=== PATIENT | female | born 2000 | race African-American/Black ===

== ENCOUNTER 2020-07-29 13:54 | Outpatient (CLI) | payer OTHER, SELFPAY ==
--- NOTE | ~2020-07-29 | US_ITS ---
EXAMINATION: US OB follow up DATE: 07/29/2020 14:37 INDICATION: Uncertain dates. TECHNIQUE: Real-time ultrasound of the pelvis was performed. COMPARISON: None. FINDINGS: There is a single living fetus in vertex presentation. The placenta is posterior. heart rate i s 144 beats per minute (bpm). The amniotic fluid volume is subjectively normal. The following biometric data were obtained: Biparietal diameter (BPD): 4.9 cm; head circumference (HC): 18.0 cm; abdominal circumference (AC): 14 .8 cm; femur length (FL): 3.6 cm. These measurements are concordant. Estimated weight is 366 g +/- 55 g, which correlates with >97th percentile when 12/21/20 is used as estimated date of delivery. As single measurements, these parameters are each equal to the following estimated gestational ages: BPD: 20 weeks 5 days. HC: 20 weeks 3 days. AC: 20 weeks 1 days. FL: 21 weeks 2 days. estimated gestational age based solely on measurements from this exam is 20 weeks 5 days +/- 1 weeks 3 days. IMPRESSION: 1. Single living fetus in vertex presentation. 2. Large for gestational age. Estimated weight is 366 g +/- 55 g, which correlates with >97th percentile when 12/21/20 is used as estimated date of delivery. Reviewed, dictated and finalized at location A. ING INTERN IMPRESSION: 1. Single living fetus in vertex presentation. 2. Large for gestational age. Estimated weight is 366 g +/- 55 g, which correlates with >97th percentile when 12/21/20 is used as estimated date of deli veryJuanita
== END 2020-07-29 13:55 | disposition home or self-care (01) ==
LOC: ANHIMG 14:02
PROVIDERS: PCP Internal Medicine; Visit Provider Obstetrics & Gynecology
DX: Z36.89 Encounter for other specified antenatal screening (principal)
CPT/HCPCS: 76816

== ENCOUNTER 2020-11-11 16:10 | Outpatient (CLI) | payer OTHER, SELFPAY ==
[2020-11-11 16:36] VITALS: BP 144/86; PULSE 91
[2020-11-11 16:44] VITALS: BP 144/86; PULSE 90
[2020-11-11 16:45] LABS: Basophils Percent Auto 0.5 % (0.2-1.2); Eosinophils Percent Auto 0.1 % (0-4.4); Hematocrit 31.1 % (37.0-47.0); Hemoglobin 10.7 g/dL (12.0-15.0); Immature Granulocyte Absolute 0.09 K/mm3 (0.00-0.031); Immature Granulocyte Percent A 1.1 % (0-0.5); Lymphocytes Absolute Auto 1.56 K/mm3 (0.9-3.2); Lymphocytes Percent Auto 18.2 % (18.3-44.2); Mean Corpuscular HGB Conc 34.4 g/dl (32-36); Mean Corpuscular Hemoglobin 31.1 pg (26-34); Mean Corpuscular Volume 90.4 fl (80-100); Mean Platelet Volume 10.7 fl (7.4-10.4); Monocytes Absolute Auto 0.6 K/mm3 (0.1-0.6); Monocytes Percent Auto 6.4 % (2.6-8.5); Neutrophils Absolute Auto 6.3 K/mm3 (1.3-6.7); Neutrophils Percent Auto 73.7 % (45.5-73.1); Nucleated Red Blood Cells Perc 0.2 % (0.0-0.2); Platelet Count Result 294 k/mm3 (150-375); Red Blood Count 3.44 M/mm3 (4.2-5.4); Red Cell Distribution Width 13.2 % (11.5-14.5); White Blood Count 8.6 K/mm3 (4.5-10.0)
[2020-11-11 16:46] VITALS: BP 143/91; PULSE 118
[2020-11-11 16:51] LABS: Add Urine Microscopic? YES; Appearance Urine Cloudy (Clear); Bacteria Urine Trace /hpf; Bilirubin Urine 2+ (Negative); Blood Urine Negative (Negative); Color Urine Amber (Yellow); Glucose Urine UA Negative (Negative); Ketones Urine Trace mg/dL (Negative); Leukocyte Esterase Ur 1+ LEU/UL (NEGATIVE); Mucus Urine Heavy /lpf; Nitrate Urine Negative (Negative); Protein Urine 2+ mg/dL (Negative); Squamous Epithelial Cell Urine Many /hpf (Few); WBC Urine 31-50 /hpf (0-3)
[2020-11-11 16:53] LABS: Anion Gap 4 mmol/L (8-16); Blood Urea Nitrogen 3 mg/dL (7-17); Carbon Dioxide 22 mmol/L (22-30); Chloride 108 mmol/L (98-107); Potassium 3.6 mmol/L (3.4-5.0); Sodium 134 mmol/L (137-145)
[2020-11-11 16:54] LABS: Specific Grav Ur 1.032 (1.001-1.035)
[2020-11-11 16:54] LABS: Alanine Aminotransferase 12 U/L (4-35); Albumin Level 3.5 g/dL (3.5-5.1); Alkaline Phosphatase 215 U/L (38-126); Aspartate Amino Transferase 28 U/L (14-36); Bilirubin,Total 1.2 mg/dL (0.2-1.3); Calcium 9.2 mg/dL (8.4-10.2); Estimated Glomerular Filt Rate > 60; Glucose 88 mg/dL (65-105)
[2020-11-11 17:01] VITALS: BP 127/75; PULSE 96
[2020-11-11 17:07] LABS: Total Protein Urine Random 7 mg/dL
[2020-11-11 17:16] VITALS: BP 133/70; PULSE 84
--- NOTE | 2020-11-11 17:23 | PC.NURSE ---
called Dr. Tatiana Krause and reported BP and PIH lab result. discharge order received with PI precaution.
[2020-11-11 17:28] LABS: Creatinine Urine > 693.0 mg/dL
[2020-11-11 17:30] VITALS: BP 133/70; PULSE 81
== END 2020-11-11 18:25 | disposition home or self-care (01) ==
LOC: ANHOBOP 16:15 → ANHOBPP 16:16
PROVIDERS: Obstetrics & Gynecology; PCP Internal Medicine; Visit Provider Obstetrics & Gynecology
DX: O13.9 Gestational [pregnancy-induced] hypertension without significant proteinuria, unspecified trimester (principal); Z3A.00 Weeks of gestation of pregnancy not specified
CPT/HCPCS: 36415; 59025; 80053; 81001; 82570; 84156; 84550; 85025; 87086; 99199

== ENCOUNTER 2020-12-09 15:05 | Inpatient (IN) | payer OTHER, SELFPAY ==
[2020-12-09] VITALS (106 sets, daily range): BP systolic 102–171; BP diastolic 51–108; PULSE 82–146; RESP 14–20; TEMP 36.8–37.2; O2SAT 95–100; BMI 38.2
--- NOTE | 2020-12-09 15:05 | LDADM ---
This patient, Pk Hernandes, was admitted to Labor/Delivery/Recovery 106 on 12/09/20 at 15:05. Plans for labor, pain management and were discussed with patient. Patient/family oriented to hospital policies and general routines including ID bracelet, bed and alarms, visiting hours, pain management, procedures, bathroom and other care routines, personal items, smoking policy, room service/diet and guest tray routines, security routines, and visiting hours. Patient/Family are encouraged to report perceived risks to care and to ask questions if they do not understand what they are told or what they should do. See OBIX for further documentation.
--- NOTE | 2020-12-09 15:31 | PC.NURSE ---
Dr. Hunter returned page. Notified of patient arrival to OB unit with complaint of contractions q10 minutes and bloody show. SVE 4.5/80/-2. BPs were elevated upon arrival. Patient denies RAMIREZ, Blurred vision, epigastric pain. Reflexes are 2+. No edema noted. Orders for admission received.
[2020-12-09] MEDS: LABETALOL HCL 100 MG TABLET 200 MG PO (15:49)
--- NOTE | 2020-12-09 15:50 | PM.IMHP ---
H&P: HPI History of Present Illness Date/Time: 12/09/20 15:50 Year old 1 para 0 at 38 weeks gestation complaining of contractions and mucous discharge. She was seen a little more than a week and a half ago with some elevated blood pressures but has been very poorly compliant. She is positive for group B strep. Blood pressures are elevated here in PIH labs are pending. Chief Complaint: labor Review of Systems Review of Systems: All systems reviewed & are unremarkable except as noted in HPI and below Exam Const: General: no acute distress Eyes: General: appearance normal, both eyes and all related structures Neck: Neck: supple and no JVD Thyroid: thyroid normal Resp: Effort & Inspection: normal respiratory effort Auscultation: clear to auscultation bilaterally Cardio: Rate: regular rate Rhythm: regular rhythm GI: Inspection: non-distended GI Palp: Yes Soft to palpation, No Tenderness to palpation present (GI) and No Guarding due to palpation present (GI) Auscultation: normal bowel sounds : External Female Exam: normal external appearance Speculum Exam - Vagina: normal appearance of the vagina Speculum Exam - Cervix: Cervical os closed ( Cervix 5/80/1. AROM meconium-stained. FHTs reassuring) Skin: General skin exam: no rashes or lesions noted Extrem: General: normal to inspection and no edema Psych: Mental Status: mental status grossly normal Affect: normal affect Assessment and Plan Additional Plan impression: 38 week with gestational hypertension / PIH. Meconium fluid present. Group B strep positive. History of poor compliance Plan: Spontaneous vaginal delivery is expected. She was given a dose of 200 mg of labetalol. PIH labs are pending. She has an epidural candidate. GBS prophylaxis being undertaken
[2020-12-09] MEDS: LACTATED RINGERS 1,000 ML 125 ML IV CONT ×2 (16:05→17:17)
[2020-12-09] MEDS: AMPICILLIN 2 GM/NS 100 ML 2 GM/100 ML BAG IVPB (16:05)
[2020-12-09 16:08] LABS: Basophils Absolute Auto 0.1 K/mm3 (0.0-0.1); Basophils Percent Auto 0.6 % (0.2-1.2); Eosinophils Percent Auto 0.2 % (0-4.4); Hematocrit 34.5 % (37.0-47.0); Hemoglobin 11.3 g/dL (12.0-15.0); Immature Granulocyte Absolute 0.07 K/mm3 (0.00-0.031); Immature Granulocyte Percent A 0.7 % (0-0.5); Lymphocytes Absolute Auto 1.76 K/mm3 (0.9-3.2); Lymphocytes Percent Auto 18.7 % (18.3-44.2); Mean Corpuscular HGB Conc 32.8 g/dl (32-36); Mean Corpuscular Hemoglobin 30.4 pg (26-34); Mean Corpuscular Volume 92.7 fl (80-100); Mean Platelet Volume 10.8 fl (7.4-10.4); Monocytes Absolute Auto 0.6 K/mm3 (0.1-0.6); Neutrophils Absolute Auto 6.9 K/mm3 (1.3-6.7); Neutrophils Percent Auto 73.8 % (45.5-73.1); Platelet Count Result 353 k/mm3 (150-375); Red Blood Count 3.72 M/mm3 (4.2-5.4); Red Cell Distribution Width 14.3 % (11.5-14.5); White Blood Count 9.4 K/mm3 (4.5-10.0)
[2020-12-09 16:15] LABS: Uric Acid 5.7 mg/dL (2.5-7.5)
[2020-12-09 16:16] LABS: Alanine Aminotransferase 15 U/L (4-35); Albumin Level 3.5 g/dL (3.5-5.1); Alkaline Phosphatase 314 U/L (38-126); Anion Gap 9 mmol/L (8-16); Aspartate Amino Transferase 36 U/L (14-36); Blood Urea Nitrogen 6 mg/dL (7-17); Calcium 9.5 mg/dL (8.4-10.2); Carbon Dioxide 22 mmol/L (22-30); Chloride 105 mmol/L (98-107); Estimated CRCL calculation 123 ml/min; Estimated Glomerular Filt Rate > 60; Glucose 94 mg/dL (65-105); Potassium 3.7 mmol/L (3.4-5.0); Sodium 136 mmol/L (137-145)
[2020-12-09 18:20] LABS: Add Urine Microscopic? YES; Amphetamine Screen Urine Negative (Negative); Appearance Urine Cloudy (Clear); Bacteria Urine Trace /hpf; Barbiturate Screen Urine Negative (Negative); Benzodiazepines Screen Urine Negative (Negative); Bilirubin Urine 1+ (Negative); Blood Urine Negative (Negative); Cannabinoid Screen Urine Positive (Negative); Cocaine Screen Urine Negative (Negative); Color Urine Amber (Yellow); Glucose Urine UA Negative (Negative); Ketones Urine Trace mg/dL (Negative); Leukocyte Esterase Ur Negative LEU/UL (Negative); Methadone Screen Urine Negative (Negative); Mucus Urine Heavy /lpf; Nitrate Urine Negative (Negative); Opiate Screen Urine Negative (Negative); Phencyclidine Screen Urine Negative (Negative); Protein Urine 3+ mg/dL (Negative); Squamous Epithelial Cell Urine Occasional /hpf (Few); WBC Urine 0-3 /hpf
[2020-12-09 18:27] LABS: Specific Grav Ur 1.044 (1.001-1.035)
[2020-12-09] MEDS: OXYTOCIN 30 UNITS/NS 500 ML 30 UNITS/500 ML BAG 6 UNITS IV CONT (19:01)
[2020-12-09] MEDS: AMPICILLIN 1 GM/NS 50 ML 1 GM/50 ML BAG IVPB (20:04)
[2020-12-09] MEDS: LORATADINE 10 MG TABLET PO (21:28)
[2020-12-10] VITALS (123 sets, daily range): BP systolic 134–169; BP diastolic 79–119; PULSE 76–141; RESP 16–20; TEMP 36.2–37.1; O2SAT 91–100
[2020-12-10] MEDS: AMPICILLIN 1 GM/NS 50 ML 1 GM/50 ML BAG IVPB (00:22)
[2020-12-10] MEDS: LABETALOL HCL INJ 100 MG/20 ML VIAL 20 MG IV PUSH (02:24)
[2020-12-10] MEDS: LABETALOL HCL INJ 100 MG/20 ML VIAL 40 MG IV PUSH ×2 (03:58→07:18)
--- NOTE | 2020-12-10 04:07 | PM.OBPNLAB ---
Pain Control Date/time seen: 12/10/20 04:07 Pain control: epidural Pelvic Exam Dilation (cm): 7 Amniotic membrane status: Ruptured Contractions Monitor mode: Internal Contraction frequency: 3 Contraction pattern: Regular Status status: Category ll Comments: Pt has noted to have two prolonged decels in the past few hours. Assessment and Plan Assessment: induction ongoing Plan: Comments: patient has been on pitocin with adequate contractions per IUPC for around 12 hours. Patients BP have been severe range refractory to IV labetalol. FHT cat 2 not with some small intermittent late decelerations. FHT have also had 2 prolonged decels throughout the evening. Given the scenario, decision was made to proceed with primary section for failed induction in the setting of PIH and Cat 2 FHT. Risks, benefits and alternative to were discussed. Patient verbally agreed to proceed with
[2020-12-10] MEDS: ceFAZolin 2 GM/D5W 50 ML 2 GM/50 ML BAG IVPB (04:14)
--- NOTE | 2020-12-10 06:33 | W.PM.PROC2 ---
Procedure Note - Detailed Date of Procedure 12/10/20 Pre-op Diagnosis contractions preeclampsia failure to progress non-reassuring FHT Post-op Diagnosis same Procedure Performed Primary section Surgeon Kan Hardy MD Anesthesia general Indications preeclampsia non-reassuring FHT failure to progress Description of Procedure The patient was taken to the operating room. A combined spinal epidural anesthesic was attempted x2 but was unable to obtain adequate pain control. Decision was made to proceed with general anesthesia. The patient was placed in a supine position with a slight left lateral tilt. A woo catheter was placed with return of clear urine. A Bovie grounding pad was placed. Surgical prep was performed and surgical drapes were placed. A surgical time out was performed. A Pfannenstiel skin incision was then made with the scalpel and carried through to the underlying layer of fascia. The fascia was then incised in the midline and the incision was extended laterally with the Junior scissors. The superior aspect of the fascia was then grasped with the Everette clamps, elevated, and the underlying rectus muscles dissected off bluntly and sharply. Attention was then turned to the inferior aspect of this incision which, in a similar fashion, was grasped, tented up with the Everette clamps, and the rectus muscles dissected off both bluntly and sharply. The rectus muscles were then in the midline. The peritoneum was identified and entered bluntly. The peritoneal incision was then extended superiorly and inferiorly with good visualization of the bladder. The vesico-uterine serosa was identified and dissected to create a bladder flap. The bladder blade was reinserted. The uterus was inspected for rotation. A low-transverse uterine incision was made sharply with the scalpel and entry was made into the uterine cavity. The uterine incision was extended laterally bluntly. The bladder blade was removed and the fetus was delivered atraumatically. The nose and mouth were suctioned with a bulb syringe. The umbilical cord was clamped twice and cut. The was handed off to the waiting staff. At the time of the delivery, the had good color, tone and grimace. The cried with minimal stimulation. A second segment of umbilical cord was clamped and cut for cord blood gasses. Cord blood was collected for determination of the blood type and for direct Wray. The placenta was delivered spontaneously without difficulty. The placenta appeared grossly normal and complete. The uterus was exteriorized and cleared of all clots and debris. The uterine incision was repaired using 0-Monocryl suture in a running fashion. A second layer of 0 Monocryl suture was used in an imbricating fashion to obtain excellent hemostasis and uterine strength. The uterine closure was inspected for hemostasis. The posterior aspect of the uterus and the broad ligaments were inspected and the posterior cul-de-sac cleared of fluid and blood clots. The uterine closure was again inspected and found to be hemostatic. The uterus was returned to the abdominal cavity. The pericolic gutters were inspected and were cleared of all blood clots and debris. The uterine closure was then re inspected to ensure hemostasis as were all subfascial tissues. The peritoneum was closed using 3-0 vicryl in a running fashion. The fascia was reapproximated with 0-vicryl in a running fashion. The subcutaneous tissue was irrigated and hemostasis achieved with electrocautery. It was reapproximated with 3-0 vicryl in a running fashion. The skin was closed with tyra. A sterile dressing was applied to the wound. The patient tolerated the procedure well. Sponge, lap and needle counts were correct times three. The patient was taken to recovery in stable condition and without anticipated complications. Estimated Blood Loss 550 Drains No Packing No Pathology none se
[2020-12-10] MEDS: KETOROLAC 30 MG/ML VIAL (*BKC) IV PUSH (07:39)
--- NOTE | 2020-12-10 08:55 | PC.NURSE ---
Patient transferred to post room #282 per stretcher from labor and delivery. Support person present. Oriented to unit, room, information board, rooming in, admission packet and security measures. Patient verbalizes understanding.
--- NOTE | 2020-12-10 09:20 | PC.NURSE ---
Patient's IV infiltrated upon restarting her pitocin and MAG bolus. Patient is refusing to be stuck for a new IV at this time. She states that she may allow an IV to be started in a few hours. The patient and her mother were educated on the importance of treatment and the severity of the situation. Patient still declines treatment. Admission blood pressure is elevated. Dr. Hardy called and update on patient's noncompliance and on her current blood pressure. He wants us to continue to attempt to get the Mag started when patient complies. No further orders or medications at this time.
[2020-12-10 11:07] LABS: Rapid Plasma Reagin Non-Reactive (NonReactive)
[2020-12-10] MEDS: NIFEdipine 30 MG TAB.ER.24 PO (14:53)
--- NOTE | 2020-12-10 15:26 | PCCCNOTE ---
Addendum entered by WOODROW Tejada 12/10/20 16:05: Received email confirmation that DCFS received information and will not be taking a report. Nursing aware. Original Note: Care Coordination Consult: Met with pt. today due to marijuana use. Pt. lives at home with her mother Lori. This is her first child. FOB is supportive. Pt. has all necessary equipment at home for child including a car seat, bassinet, diapers, clothing, and bottles. Pt. reports she ideally would like to breast feed but plans to bottle feed at discharge. Pt. has supportive family. Pt. reports she was unaware that she was until the 20th week. Pt. states she was recreationally using marijuana until realizing she was . Denies any other substance use. Pt. is aware baby boy tested positive for marijuana in urine test. Meconium is pending. Pt. aware DCFS will be contacted regarding marijuana use. Submitted online DCFS report # [id number]. Awaiting reply. Pt. denies any further needs.
[2020-12-10] MEDS: IBUPROFEN 600 MG TABLET PO (17:11)
[2020-12-11] VITALS: BP 133/86; PULSE 98; RESP 20; TEMP 36.8; O2SAT 99
--- NOTE | 2020-12-11 | PC.NURSE ---
ID band found in bathroom on the floor & baby band found on the floor at bedside. Discussed importance of keeping both ID bands on for safety & security reasons for her & . Stated, I'm not sleeping with them on. I want to be left alone, why are you in here so late? Explained plan of care with vital signs & physical assessment every 4 hours. Patient refused & requested to not be bothered anymore through the night. Napoleon remains in nursery.
--- NOTE | 2020-12-11 04:32 | PC.NURSE ---
Refused 0400 assessment & blood draw.
--- NOTE | 2020-12-11 07:58 | P.PNOB_ITS ---
OB - PN: Subj Subjective Date/time seen: 12/11/20 07:58 Interval history: Patient doing well this AM. She is ambulating out of bed. She is toelrating PO. She reports adequate pain control. Her bleeding is normal and she reports normal lochia. She denies fever, chills, N/V. She has not yet passed flatus. Pt was diagnosed wiht preeclampsia. Pt refused magnesium treatment. Per RN, pt has also been refusing to urinate in the hat to keep appropriate I&O. She denies any RAMIREZ, scotoma, RUQ pain or change in swelling. Patient comments: no complaints and pain well controlled; no flatus present OB - PN: Obj Data Labs CBC & Chem 7: 12/09/20 15:58 12/09/20 15:58 Labs: Laboratory Results - last 24 hr 12/09/20 15:58 RPR Non-reactive OB - PN A/P Plan day: 1 Plan: routine care Comments: patient doing well this AM s/p woo, voiding spontaneously tolerating PO H/H currently on procadia 30mg XL daily BP mild to normal range overnight Pt not cooperative with I&O measurements, encouraged compliance Pt consented for circumcision. Risks, benefits, and alterantives discuss. Pt was not willing to let me take the baby to perform the procedure. Again, discussed that it was an elective procedure and if she does not want me to do it at this time she could have it performed at a later date. will continue to monitor BP and PreE symptoms. anticipate d/c home tomorrow. Time Spent With Patient Time: Total time spent is greater than 50% in coordination of care (as d ocumented) at patient's floor/unit and/or counseling patient: Time with patient: less than 15 minutes Review of Systems Constitutional: Constitutional: Reports no additional constitutional complaints Cardiovascular: Cardiovascular: Reports no additional cardiovascular complaints Respiratory: Respiratory: Reports no additional respiratory complaints Gastrointestinal: Gastrointestinal: Reports no additional gastrointestinal complaints Genitourinary: Genitourinary: Reports no additional female genitourinary complaints Exam Const: General: comfortable and no acute distress Resp: Effort & Inspection: normal respiratory effort Auscultation: clear to auscultation bilaterally Cardio: Rate: regular rate GI: GI Palp: Yes Soft to palpation and Yes Tenderness to palpation present (GI) (appropriately tender around incision ) Auscultation: normal bowel sounds Other: fundus firm and below umbilicus Incision C/D/I Urinary Catheter: Urinary Catheter: urine clear Psych: Appearance: grossly normal Mental Status: mental status grossly normal Affect: normal affect
--- NOTE | 2020-12-11 09:13 | WPDANLDPN2 ---
Anes-Prog Note L&D Date/Time: 12/11/20 09:13 Comfortable throughout: section Neuro status: Neuro function grossly intact. Cardiovascular status: normal Respiratory status: normal Airway patency: baseline Mental status: baseline Post-Op hydration status: normal Vital Signs: Last Vital Signs Temp 36.8 C 12/11/20 00:00 Pulse 98 12/11/20 00:00 Resp 20 12/11/20 00:00 BP 133/86 12/11/20 00:00 Pulse Ox 99 12/11/20 00:00 Pain score (VAS): 2 I/O: Intake & Output 12/10/20 12/11/20 12/11/20 23:59 07:59 15:59 Intake Total 1400 150 Output Total 625 Balance 775 150 Post-procedural complaints: none Patient feedback: Patient satisfied with anesthetic care.
[2020-12-11 10:45] VITALS: PULSE 110; RESP 20; TEMP 37; O2SAT 100
[2020-12-11] MEDS: DOCUSATE SODIUM 100 MG CAPSULE PO ×2 (10:51→16:36)
[2020-12-11] MEDS: MULTIVIT/MIN/PREN/FOL AC/IRON TABLET 1 TAB PO (10:51)
[2020-12-11] MEDS: POLYSACCHARIDE IRON COMPLEX 150 MG CAPSULE PO ×2 (10:51→16:36)
[2020-12-11] MEDS: HYDROcodone/acetaminophen (*CRX) 5-325 MG TABLET 1 TAB PO ×2 (10:51→14:14)
[2020-12-11] MEDS: IBUPROFEN 600 MG TABLET PO ×2 (10:53→16:36)
[2020-12-11] MEDS: NIFEdipine 30 MG TAB.ER.24 PO (10:54)
[2020-12-11 12:08] LABS: Basophils Absolute Auto 0.1 K/mm3 (0.0-0.1); Basophils Percent Auto 0.3 % (0.2-1.2); Eosinophils Percent Auto 0.1 % (0-4.4); Hematocrit 26.7 % (37.0-47.0); Hemoglobin 8.7 g/dL (12.0-15.0); Immature Granulocyte Absolute 0.19 K/mm3 (0.00-0.031); Immature Granulocyte Percent A 0.8 % (0-0.5); Lymphocytes Absolute Auto 2.67 K/mm3 (0.9-3.2); Mean Corpuscular HGB Conc 32.6 g/dl (32-36); Mean Corpuscular Hemoglobin 30.6 pg (26-34); Mean Platelet Volume 9.9 fl (7.4-10.4); Monocytes Absolute Auto 1.2 K/mm3 (0.1-0.6); Monocytes Percent Auto 4.9 % (2.6-8.5); Neutrophils Absolute Auto 20.2 K/mm3 (1.3-6.7); Neutrophils Percent Auto 82.9 % (45.5-73.1); Platelet Count Result 277 k/mm3 (150-375); Red Blood Count 2.84 M/mm3 (4.2-5.4); Red Cell Distribution Width 14.6 % (11.5-14.5); White Blood Count 24.3 K/mm3 (4.5-10.0)
[2020-12-11] MEDS: RHO(D) IMMUNE GLOBULIN 300 MCG/2 ML SYRINGE IM (14:28)
[2020-12-11 16:30] VITALS: BP 139/93; PULSE 113; RESP 20; TEMP 37.3
[2020-12-11 21:15] VITALS: BP 138/83; PULSE 121; RESP 18; TEMP 36.8; O2SAT 100
[2020-12-11] MEDS: SERTRALINE HCL 50 MG TABLET PO (21:23)
[2020-12-11] MEDS: HYDROcodone/acetaminophen (*CRX) 10-325 MG TABLET 1 TAB PO (21:25)
[2020-12-12] VITALS (8 sets, daily range): BP systolic 114–149; BP diastolic 70–105; PULSE 98–121; RESP 18–20; TEMP 36.8–37.5; O2SAT 99–100
[2020-12-12] MEDS: IBUPROFEN 600 MG TABLET PO ×3 (05:31→22:31)
[2020-12-12] MEDS: HYDROcodone/acetaminophen (*CRX) 5-325 MG TABLET 1 TAB PO ×2 (05:32→17:47)
--- NOTE | 2020-12-12 08:09 | PM.OBDSVD ---
DS: Admitting Diagnosis Admitting Diagnosis Admitting Diagnosis: labor OB - DS: Summary OB Procedures : None OB Procedures Intrapartum: OB Procedures: : None Peripartum Data Delivery Method: Section Procedures: Procedures Operation Date: 12/10/20 04:15 Actual Procedure Side Surgeon p Section Not Applicable Kan Hardy MD complications: none Status at Discharge Functional status at discharge: independent ambulation Overall status at discharge: patient is progressing back to baseline Time Spent with Patient Time attestation: Total time spent providing and/or coordinating discharge services: Time spent: Less than 30 minutes Exam Const: General: comfortable and no acute distress Resp: Effort & Inspection: normal respiratory effort Auscultation: clear to auscultation bilaterally Cardio: Rate: regular rate GI: Inspection: non-distended GI Palp: Yes Soft to palpation, No Firmness to palpation present (GI), Yes Tenderness to palpation present (GI) (mild tenderness over incision ) and No Guarding due to palpation present (GI) Auscultation: normal bowel sounds Psych: Appearance: grossly normal Mental Status: mental status grossly normal DS: Data Data Completed and Pending Pending studies at discharge: Pending at discharge 12/10/20 07:02 Surgical [PTH] Routine Labs on day of discharge: Labs from last 24 hours 12/11/20 12/11/20 11:54 11:54 WBC 24.3 H RBC 2.84 L Hgb 8.7 L Hct 26.7 L MCV 94.0 MCH 30.6 MCHC 32.6 RDW 14.6 H Plt Count 277 MPV 9.9 Immature Gran % (Auto) 0.8 H Neut % (Auto) 82.9 H Lymph % (Auto) 11.0 L Hart % (Auto) 4.9 Eos % (Auto) 0.1 Baso % (Auto) 0.3 Lymph # (Auto) 2.67 Hart # (Auto) 1.2 H Eos # (Auto) 0.0 Baso # (Auto) 0.1 Abs Immat Gran (auto) 0.19 H Absolute Neuts (auto) 20.2 H Absolute Nucleated RBC 0.0 Nucleated RBC % 0.0 Blood Type AB Negative Antibody Screen TNP Screen Negative Baby's Blood Type B pos Baby's VINICIUS Negative Doses of RhIg Required 1 Discharge Plan Discharge Discharging Clinician: kenyetta Patient Disposition: Home, Self-Care Activity: as tolerated and pelvic rest Diet: regular Wound Care Instructions: other - see discharge instructions Discharge Instructions: return to the office in 1 week for BP check and staple removal Patient Instructions: Antibiotic Form, Preeclampsia During (DC), (DC) Stand Alone Forms: General Discharge Information Follow-up/Referrals: Dieter Torres MD [Physician] - 1 Week Discharge Medications: New hydrocodone-acetaminophen 5-325 mg tablet 1 tablet PO Q6H PRN (Reason: pain) Qty: 28 RF: 0 acetaminophen [Mapap (acetaminophen)] 325 mg Tablet 650 mg PO Q6H PRN (Reason: Mild Pain (1-3)) Qty: 30 RF: 0 nifedipine [Procardia XL] 30 mg Tablet Extended Release 24hr 30 mg PO QAM Qty: 30 RF: 0 sertraline [Zoloft] 50 mg Tablet 50 mg PO HS Qty: 30 RF: 3 ibuprofen 600 mg Tablet 600 mg PO Q6H PRN (Reason: Cramping) Qty: 30 RF: 0 Continued Vitamin 1 tablet BYMOUTH DAILY RF: 0 Date of admission: 12/09/20 15:05 Primary Care Provider: Chloe,Kassandra Admitting Provider: Dieter Torres Attending physician on admission: Dieter Torres Condition: Stable
[2020-12-12] MEDS: DOCUSATE SODIUM 100 MG CAPSULE PO ×2 (09:48→16:19)
[2020-12-12] MEDS: NIFEdipine 30 MG TAB.ER.24 PO (09:48)
[2020-12-12] MEDS: POLYSACCHARIDE IRON COMPLEX 150 MG CAPSULE PO ×2 (09:48→16:20)
[2020-12-12] MEDS: MULTIVIT/MIN/PREN/FOL AC/IRON TABLET 1 TAB PO (09:49)
[2020-12-12] MEDS: ZOLPIDEM TARTRATE (*CRX) 5 MG TABLET PO (22:30)
[2020-12-12] MEDS: HYDROcodone/acetaminophen (*CRX) 10-325 MG TABLET 1 TAB PO (22:30)
[2020-12-12] MEDS: SERTRALINE HCL 50 MG TABLET PO (22:30)
[2020-12-13] MEDS: HYDROcodone/acetaminophen (*CRX) 5-325 MG TABLET 1 TAB PO ×2 (05:55→09:29)
[2020-12-13] MEDS: IBUPROFEN 600 MG TABLET PO (05:57)
[2020-12-13 08:00] VITALS: BP 142/96; PULSE 107; RESP 16; TEMP 37; O2SAT 100
[2020-12-13] MEDS: NIFEdipine 30 MG TAB.ER.24 PO (09:29)
[2020-12-13] MEDS: DOCUSATE SODIUM 100 MG CAPSULE PO (09:29)
[2020-12-13] MEDS: POLYSACCHARIDE IRON COMPLEX 150 MG CAPSULE PO (09:29)
--- NOTE | 2020-12-15 07:52 | PM.OBDSVD ---
DS: Admitting Diagnosis Admitting Diagnosis Admitting Diagnosis: labor OB - DS: Summary OB Procedures : None OB Procedures Intrapartum: OB Procedures: : None Peripartum Data Delivery Method: Section Procedures: Procedures Operation Date: 12/10/20 04:15 Actual Procedure Side Surgeon p Section Not Applicable Kan Hardy MD complications: none Status at Discharge Functional status at discharge: independent ambulation Overall status at discharge: patient is progressing back to baseline Time Spent with Patient Time attestation: Total time spent providing and/or coordinating discharge services: Time spent: Less than 30 minutes Exam Const: General: comfortable and no acute distress Resp: Effort & Inspection: normal respiratory effort Auscultation: clear to auscultation bilaterally Cardio: Rate: regular rate GI: Inspection: non-distended GI Palp: Yes Soft to palpation, No Firmness to palpation present (GI), Yes Tenderness to palpation present (GI) (mild tenderness over incision ) and No Guarding due to palpation present (GI) Auscultation: normal bowel sounds Psych: Appearance: grossly normal Mental Status: mental status grossly normal DS: Data Data Completed and Pending Pending studies at discharge: Pending at discharge 12/10/20 07:02 Surgical [PTH] Routine Discharge Plan Discharge Discharging Clinician: kenyetta Patient Disposition: Home, Self-Care Activity: as tolerated and pelvic rest Diet: regular Wound Care Instructions: other - see discharge instructions Discharge Instructions: Education: Mom and Baby Guide Given to: Mother Follow-Up: Call your delivering provider's office for an appointment to be seen in: 1 Week Mom and baby should come to the [facility] for the follow-up appointment. Appointment Date/Time: Tuesday, December 15, 2020 at 10:00 am Call [phone] if you are unable to keep your appointment time. BREAST CARE: * Wear a snug supportive bra. * For engorgement discomfort: Bottle Feeding: * May apply ice packs ABDOMINAL INCISION: (if applicable) * Allow incision to air dry * Do NOT use lotions for powders on your incision * When showering, allow soap and water to run over the incision, but do not wash incision PERINEAL CARE: * Until bleeding stops, use your froilan bottle after urinating * Change your pad frequently throughout the day * You may take sitz baths several times a day (fill your bathtub with warm water and soak for 20 minutes.) Do NOT bathe in the water * No tub baths until seen by your physician - You may shower ACTIVITY: * Rest as much as possible. * Do not exercise or lift anything heavier than your baby (such as laundry or other children.) * Avoid stairs or driving as much as possible. * Do not put anything into the vagina. No douching, tampons, or sexual activity until seen by physician. NOTIFY PHYSICIAN IF YOU HAVE ANY QUESTIONS OR IF ANY OF THE FOLLOWING SYMPTOMS OCCUR: * If your episiotomy or incision becomes red, swollen, or more painful than what you have experienced in the hospital. * If your vaginal bleeding becomes foul smelling. * If your vaginal bleeding becomes more heavy than a period or if your bleeding changes from pink to bright red. However, you may pass an occasional walnut-sized clot once or twice for the first week . * If you experience a sharp, shooting pain in you calves. * If you discover a hard, reddened area on your breast or if you experience flu-like symptoms. DIET: * Eat regular, well-balanced meals. * Drink plenty of fluids daily. If , drink to thirst. Per Dr. Ttaiana Krause, Return to the office in 1 week for BP check and staple removal. Patient Instructions: Preeclampsia During (DC), (DC) Follow-up/Referrals: Dieter Torres MD
== END 2020-12-13 16:44 | disposition home or self-care (01) | DRG 788 ==
LOC: ANHLDR 15:42 → ANHOB2 12-10 09:01
PROVIDERS: Student in an Organized Health Care Education/Training Program; Admitting Provider Obstetrics & Gynecology; PCP Internal Medicine; Visit Provider Obstetrics & Gynecology
PROC: 10D00Z1 Extraction of Products of Conception, Low, Open Approach (ICD-10-PCS; CPT 59514; principal; 2020-12-10 04:15)
DX: O14.94 Unspecified pre-eclampsia, complicating childbirth (principal); Z37.0 Single live birth; Z3A.38 38 weeks gestation of pregnancy; O77.0 Labor and delivery complicated by meconium in amniotic fluid; O99.824 Streptococcus B carrier state complicating childbirth; O36.8330 Maternal care for abnormalities of the fetal heart rate or rhythm, third trimester, not applicable or unspecified
CPT/HCPCS: 36415; 80053; 80307; 81001; 84550; 85025; 85461; 86592; 86850; 86900; 86901; 88307; 90384; A9270; J0131; J0290; J0330; J0690; J1100; J1885; J2270; J2274; J2405; J2590; J2704; J2790; J2795; J3010; J7120

== ENCOUNTER 2021-09-06 05:50 | Emergency (ER) | payer OTHER, SELFPAY ==
--- NOTE | 2021-09-06 06:13 | ED.URI ---
HPI - URI/Sore Throat General Chief Complaint: Unspecified Stated Complaint: sneezing, stomach pain, Feeling unwell Time Seen by Provider: 09/06/21 06:12 Source: patient Mode of arrival: ambulatory Limitations: no limitations History of Present Illness HPI Narrative: Patient is a 21-year-old female complaining of nasal congestion, sneezing, body aches that started yesterday. Patient states that after taking Tylenol she had some epigastric discomfort but now resolved. Patient denies any chest pain, shortness of breath, nausea, vomiting, diarrhea, fever or chills. Positive for sick contact, patient is with her son also to be seen here in the emergency room due to an upper respiratory infection, possibly croup. Related Data Home Medications Medication Instructions Recorded Confirmed Vitamin 1 tablet BYMOUTH DAILY 12/09/20 12/09/20 Allergies Allergy/AdvReac Type Severity Reaction Status Date / Time No Known Allergies Allergy Verified 12/09/20 16:03 Review of Systems Review of Systems: Per HPI All systems reviewed & are unremarkable except as noted in HPI and below Constitutional: Constitutional: Denies chills, Denies excessive sweating, Denies fatigue, Denies fever(s), Denies headache(s), Denies lethargy, Denies malaise, Denies weakness and Denies weight loss Eyes: Eyes: Denies blurry vision, Denies change in vision and Denies loss of vision ENT: Denies dizziness, Denies ear discharge, Denies headache(s), Denies lip swelling, Denies epistaxis, Denies neck pain, Denies throat swelling and Denies tongue swelling Cardiovascular: Cardiovascular: Denies chest pain, Denies chest pain at rest, Denies chest pain with activity, Denies diaphoresis, Denies rapid heart rate, Denies edema, Denies irregular heart rhythm, Denies lightheadedness, Denies palpitations, Denies dyspnea and Denies dyspnea on exertion Respiratory: Respiratory: Denies chest congestion, Denies hemoptysis, Denies dyspnea and Denies dyspnea on exertion Gastrointestinal: Gastrointestinal: Denies abdominal pain, Denies melena, Denies hematochezia, Denies diarrhea, Denies nausea, Denies vomiting and Denies hematemesis Musculoskeletal: Musculoskeletal: Denies abnormal gait, Denies deformity, Denies joint swelling, Denies limited range of motion, Denies neck pain and Denies numbness Neurologic: Denies Abnormal speech present, Denies abnormal gait, Denies confusion, Denies dizziness, Denies headache(s), Denies focal weakness, Denies loss of vision, Denies numbness, Denies Other visual disturbances, Denies Sensory deficit (Neuro) and Denies weakness Psychiatric: Psychiatric: Denies confusion, Denies depression, Denies auditory hallucinations, Denies homicidal ideation and Denies suicidal ideation Endocrine: Endocrine: Denies cold intolerance, Denies excessive sweating, Denies fatigue, Denies heat intolerance and Denies palpitations Hematologic/Lymphatic: Hematologic/Lymphatic: Denies easy bleeding and Denies easy bruising Allergic/Immunologic: Allergic/Immunologic: Denies lip swelling, Denies throat swelling and Denies tongue swelling PMFSH Social History Social History Smoking status: Never smoker Substance use: never Gender identity (if verbalized by the patient): Female Spiritual care concerns: No Comments Past medical history: None Family history: Unknown Social history: Positive for smoker, no EtOH or drug use Exam Const: General: cooperative, healthy appearing, comfortable, no acute distress, well developed, alert and awake; No confusion Orientation/consciousness: oriented to person, oriented to place, oriented to time, patient oriented x3 and No confusion Limitations: no limitations HENMT: Head: normal to inspection, normocephalic and atraumatic Ears: hearing grossly normal bilaterally, TM normal on the right and TM normal on the left General nose exam: Normal external nose present,
[2021-09-06 06:15] VITALS: BP 131/67; PULSE 91; RESP 18; TEMP 36.6; O2SAT 98
== END 2021-09-06 07:27 | disposition home or self-care (01) ==
PROVIDERS: Emergency Provider Emergency Medicine; PCP Internal Medicine
DX: J06.9 Acute upper respiratory infection, unspecified (principal)
CPT/HCPCS: 99281

== ENCOUNTER 2022-08-12 17:25 | Emergency (ER) | payer OTHER, MEDICAID, SELFPAY ==
[2022-08-12 17:34] VITALS: BP 111/88; PULSE 58; RESP 16; TEMP 36.5; O2SAT 98
[2022-08-12 18:06] LABS: Appearance Urine Clear (Clear); Bilirubin Urine 1+ (Negative); Blood Urine 3+ (Negative); Color Urine Yellow (Yellow); Glucose Urine UA Negative (Negative); Ketones Urine Negative (Negative); Leukocyte Esterase Ur Negative LEU/UL (Negative); Nitrate Urine Negative (Negative); Protein Urine 1+ mg/dL (Negative); Specific Grav Ur >= 1.030 (1.001-1.035); Urobilinogen Urine 0.2 mg/dL (<2.0); pH Urine 5.5 (5.0-9.0)
[2022-08-12 18:12] LABS: Ethanol < 10 mg/dL (<10)
[2022-08-12 18:13] LABS: Alanine Aminotransferase 17 U/L (6-35); Albumin Level 4.9 g/dL (3.5-5.1); Alkaline Phosphatase 67 U/L (38-126); Anion Gap 5 mmol/L (8-16); Aspartate Amino Transferase 25 U/L (14-36); Blood Urea Nitrogen 12 mg/dL (7-17); Calcium 9.3 mg/dL (8.4-10.2); Carbon Dioxide 27 mmol/L (22-30); Chloride 103 mmol/L (98-107); Estimated CRCL calculation 107 ml/min; Estimated Glomerular Filt Rate > 60; Glucose 91 mg/dL (65-110); Potassium 3.7 mmol/L (3.4-5.0); Sodium 135 mmol/L (137-145)
[2022-08-12 18:19] LABS: Mucus Urine Heavy /lpf; Squamous Epithelial Cell Urine Rare /hpf (Few); WBC Urine 0-3 /hpf
[2022-08-12 18:20] LABS: Add Urine Microscopic? YES
[2022-08-12 18:21] LABS: Basophils Absolute Auto 0.1 K/mm3 (0.0-0.1); Basophils Percent Auto 2.2 % (0.2-1.2); Eosinophils Absolute Auto 0.1 K/mm3 (0-0.3); Eosinophils Percent Auto 1.9 % (0-4.4); Hematocrit 40.2 % (37.0-47.0); Hemoglobin 13.3 g/dL (12.0-15.0); Immature Granulocyte Absolute 0.01 K/mm3 (0.00-0.031); Immature Granulocyte Percent A 0.3 % (0-0.5); Lymphocytes Absolute Auto 1.51 K/mm3 (0.9-3.2); Lymphocytes Percent Auto 48.4 % (18.3-44.2); Mean Corpuscular HGB Conc 33.1 g/dl (32-36); Mean Corpuscular Hemoglobin 30.5 pg (26-34); Mean Corpuscular Volume 92.2 fl (80-100); Mean Platelet Volume 11.6 fl (7.4-10.4); Monocytes Absolute Auto 0.3 K/mm3 (0.1-0.6); Monocytes Percent Auto 9.6 % (2.6-8.5); Neutrophils Absolute Auto 1.2 K/mm3 (1.3-6.7); Neutrophils Percent Auto 37.6 % (45.5-73.1); Platelet Count Result 284 k/mm3 (150-375); Red Blood Count 4.36 M/mm3 (4.2-5.4); Red Cell Distribution Width 13.2 % (11.5-14.5); White Blood Count 3.1 K/mm3 (4.5-10.0)
[2022-08-12 18:22] LABS: Amphetamine Screen Urine Negative (Negative); Barbiturate Screen Urine Negative (Negative); Benzodiazepines Screen Urine Negative (Negative); Cannabinoid Screen Urine Positive (Negative); Cocaine Screen Urine Negative (Negative); Methadone Screen Urine Negative (Negative); Opiate Screen Urine Negative (Negative); Phencyclidine Screen Urine Negative (Negative)
[2022-08-12 18:36] LABS: Influenza A QL RT-PCR Negative (Negative); Influenza B QL RT-PCR Negative (Negative); SARS-CoV-2 RNA PCR Negative
[2022-08-12 18:56] LABS: Pregnancy On Board Control Positive; Urine Pregnancy Test Negative
--- NOTE | 2022-08-12 19:01 | ED.PSYCH ---
HPI - Psych General Chief Complaint: Psychiatric Symptoms <Jessy Almonte MD - Last Filed: 08/12/22 23:15> Stated Complaint: Sent by [facility]. Psychotic issues <Jessy Almonte MD - Last Filed: 08/12/22 23:15> Time Seen by Provider: 08/12/22 18:05 <Jessy Almonte MD - Last Filed: 08/12/22 23:15> History of Present Illness HPI Narrative: Patient with history of anxiety and depression states that over the past year she has been more anxious and depressed, she is not stating she has any thoughts of hurting herself at this time, she is not on any medications, she is just worried that she has been coping by the smoking marijuana and patient she knows that this is not good for her and and that she wants psychiatric help. <Jessy Almonte MD - Last Filed: 08/12/22 23:15> Related Data Home Medications: Home Medications Medication Instructions Recorded Confirmed Vitamin 1 tablet BYMOUTH DAILY 12/09/20 12/09/20 <Jessy Almonte MD - Last Filed: 08/12/22 23:15> Allergies/Adverse Reactions: Allergies Allergy/AdvReac Type Severity Reaction Status Date / Time No Known Allergies Allergy Verified 08/12/22 17:26 <Jessy Almonte MD - Last Filed: 08/12/22 23:15> Review of Systems Review of Systems: CONST: No fever. HEENT: No sore throat C/V: No chest pain RESP: No cough GI: No abdominal pain : No dysuria. M/S: No joint pain. SKIN: No rash. NEURO: [No headache or focal numbness or weakness] PSYCH: Depression, anxiety <Jessy Almonte MD - Last Filed: 08/12/22 23:15> [facility] Social History Social History: Social History Smoking status: Never smoker Substance use: never Gender identity (if verbalized by the patient): Female Spiritual care concerns: No <Jessy Almonte MD - Last Filed: 08/12/22 23:15> Exam Narrative: EXAMINATION OF ORGAN SYSTEMS/BODY AREAS: Constitutional: Vital signs per nursing GENERAL:[No acute distress, non-toxic appearing.] HEAD: Normal with no signs of head trauma. EYES: EOMI, conjunctiva normal ENT: Hearing grossly intact LUNGS: Nonlabored breathing. HEART: [Regular rate and rhythm] ABD: [Soft], [nontender to palpation] EXT: Normal range of motion SKIN: [No rashes or lesions.] NEURO: [Alert and oriented x 3. No gross focal sensory or strength deficits.] PSYCH: Normal affect; denies SI/HI <Jessy Almonte MD - Last Filed: 08/12/22 23:15> Course Course Emergency Course: BILL 699: Patient was signed out to me pending placement. [place] through my shift the patient decided that she wanted to go home. I spoke with the psychiatry service and they do not believe she is safe for discharge. They then came to the hospital and she was placed on involuntary admission. Petition and certificate were completed. Patient was accepted at at [facility] by Dr. Leiva. Patient will be transferred. <Raoul Johnson MD - Last Filed: 08/13/22 06:52> Vital Signs Vital signs: Vital Signs Temperature 97.7 F 08/12/22 17:34 Pulse Rate 58 L 08/12/22 17:34 Respiratory Rate 16 08/12/22 17:34 Blood Pressure 111/88 08/12/22 17:34 Pulse Oximetry 98 08/12/22 17:34 Oxygen Delivery Room Air 08/12/22 17:34 Temperature 97.7 F 08/12/22 17:34 Pulse Rate 67 08/13/22 06:49 Respiratory Rate 16 08/13/22 06:49 Blood Pressure 99/60 L 08/13/22 06:49 Pulse Oximetry 100 08/13/22 06:49 Oxygen Delivery Room Air 08/12/22 17:34 <Jessy Almonte MD - Last Filed: 08/12/22 23:15> Vital Signs Temperature 97.7 F 08/12/22 17:34 Pulse Rate 58 L 08/12/22 17:34 Respiratory Rate 16 08/12/22 17:34 Blood Pressure 111/88 08/12/22 17:34 Pulse Oximetry 98 08/12/22 17:34 Oxygen Delivery Room Air 08/12/22 17:34 Temperature 97.7 F 08/12/22 17:34 Pulse Rate 67 08/13/22 06:49 Respiratory Rate 16 08/13/22 06:49 Blood Pressure 99/60 L 08/13/22 06:49 Pulse Oximetry 1
--- NOTE | 2022-08-12 21:52 | PC.NURSE ---
Brenna from [facility] in [place] called and states they have no beds available
[2022-08-12] MEDS: MELATONIN 5 MG TABLET PO (22:23)
[2022-08-12] MEDS: hydrOXYzine HCL 25 MG TABLET PO (22:23)
--- NOTE | 2022-08-12 22:25 | PC.NURSE ---
Patient no longer requires suicide watch. Patient expressed no SI or HI thoughts to previous RN and to curriculum writer. Per JA Dozier, charge nurse, no sitter is needed at this time. Patient continues to be calm and cooperative with staff.
--- NOTE | 2022-08-12 23:15 | PC.NURSE ---
[facility] calls and says they cannot accept the pt due to abnormal labs.
--- NOTE | 2022-08-13 01:22 | PC.NURSE ---
Patient requesting to be moved to a room or go home. Jacoby RN, charge nurse, made aware and Dr. Johnson also aware.
--- NOTE | 2022-08-13 01:50 | PC.NURSE ---
Sia with [facility] returned call and spoke with jingle writer. Sia informed that Vi was the original worker who assessed patient and is concerned with discharge. Per Sia, Vi is going to contact her supervisor customer services and see if the patient can be discharged or if she needs to be made involuntary. Vi will then contact jingle writer to let her know what the supervisor customer services decided.
--- NOTE | 2022-08-13 02:15 | PC.NURSE ---
Dr. Johnson spoke with Vi from [facility] and Vi is to come out and fill out involuntary paperwork.
--- NOTE | 2022-08-13 03:00 | PC.NURSE ---
Vi from [facility] here to talk with patient. After Vi spoke with patient, patient wants to stay and receive help. Vi is writing involuntary paperwork since patient has changed her mind previously and because of the risk of self harm.
[2022-08-13] MEDS: QUEtiapine FUMARATE 25 MG TABLET 50 MG PO (03:05)
--- NOTE | 2022-08-13 03:29 | PC.NURSE ---
Per manfred Iraheta for patient to keep her phone.
--- NOTE | 2022-08-13 06:31 | PC.NURSE ---
Patient care report given to JA Alvarez at [facility]. All questions answered at this time.
--- NOTE | 2022-08-13 06:44 | PC.NURSE ---
Oiler Bander informed patient that she had been accepted [facility]. Patient agreeable to transfer and informed waiting for EMS at this time.
[2022-08-13 06:49] VITALS: BP 99/60; PULSE 67; RESP 16; O2SAT 100
--- NOTE | 2022-08-13 07:08 | PC.NURSE ---
Patient care report given to EMS. All questions answered at this time. Patient belongings given to EMS to transport with patient.
== END 2022-08-13 07:11 ==
PROVIDERS: Emergency Medicine; Emergency Provider Emergency Medicine; PCP Internal Medicine
DX: F41.9 Anxiety disorder, unspecified (principal); F32.A Depression, unspecified; R45.851 Suicidal ideations; Z20.822 Contact with and (suspected) exposure to COVID-19
CPT/HCPCS: 36415; 80053; 80307; 81001; 81025; 84443; 85025; 87636; 99285; A9270

== ENCOUNTER 2024-10-05 11:15 | Emergency (ER) | payer OTHER, SELFPAY ==
--- NOTE | ~2024-10-05 | XR_ITS ---
XR chest 2V Ordering provider: Thomas Smith MD History: 24 years Female with . cp and sob . Comparison: None. FINDINGS: MEDIASTINUM: The cardiac silhouette is not enlarged. LUNGS: No infiltrates, effusions or pneumothorax. OTHER: No free air under the diaphragm. IMPRESSION: No acute cardiopulmonary pathology. Reviewed, dictated and finalized at location A.
--- NOTE | 2024-10-05 11:16 | ECG_ITS ---
Test Date: 2024-10-05 11:22:36 Measurements Intervals [place] Rate: 84 P: 61 HI: 139 QRS: 37 QRSD: 82 T: 31 QT: 332 QTc: 395 Interpretive Statements SINUS RHYTHM WITH SINUS ARRHYTHMIA EARLY PRECORDIAL R/S TRANSITION MINIMAL Q WAVES- HIGH LATERAL LEADS BASELINE ARTIFACT- I, II, III, AVR, AVL, AVF, V1-V6 BORDERLINE ECG No previous ECG available for comparison Electronically Signed On 10-05-2024 12:16:50 CDT by Bart Biggs D.O.
--- OUTSIDE RECORDS SUMMARY | 2024-10-05 11:17 | XMS_ITS | Patient Health Record ---
Author Organization [facility] Address [address] [place] [address] Care Team Providers Care Barrel Assembly Inspector Name Role Phone Leonora, Meredith Primary Care Provider Allergies No Known Allergies Reason For Referral Reason pt is interested in therapy. Tested positive for Mood disorder. She has a hx of cannabis abuse, she was hospitalized for it 2 weeks ago at [facility] Diagnosis 1 Cannabis use disorde r (F12.90) Diagnosis 2 Mood disorder (F39) Referral Organization [facility] Referring Provider First Name Meredith Referring Provider Last Name Leonora Referring Provider Speciality Psychiatry Referred Provider Specialty Behavioral [facility] Clinical Notes Cristopher Thompson 2023 02:44:41 PM > Client was unable to be reached, left a voicemail., Cristopher Thompson 02/22/2024 12:50:01 PM > Client was unable to be reached, left a voicemail., Cristopher Thompson 02/26/2024 09:19:26 AM > Client was unable to be reached, letter will be sent. Referral Priority Routine Medications Medication SIG (Take, Route, Fr equency, Duration) Notes Start Date End Date Status Mirtazapine 7.5 MG 1 tablet at bedtime Orally Once a day for 30 days 02/19/2024 Active FLUoxetine HCl 20 MG 1 capsule Orally On ce a day for 30 days Active ARIPiprazole 5 MG 1 tablet Orally Once a day for 30 days 02/19/2024 Active Social History Tobacco Use: Social History Observation Description Date Details (start date - stop date) Current Smoker NA - NA Tobacco Control (Standard) Question Answer Notes Tobacco use: Current smoker How often do you smoke cigarettes? Every day How many cigarettes a day do you smoke? 31 or mo re How soon after you wake up d o you smoke your first cigarette? Within 5 minutes Are you interested in quitting? Thinking about q uitting Additional Findings: Tobacco user Chain smoker Problems Problem Type SNOMED Code ICD Code Onset Dates Problem Status W/U Status Risk Notes Problem Mood disorder (07341009) Mood disorder (F39) 02/19/2024 Active confirmed Problem Anxiety (51803585) Anxiety (F41.9) 10/09/2023 Active confirmed Problem Cannabis abuse (31545676) Cannabis abuse (F12.10) Active confirmed Problem Major depressive disorder (505064825) MDD (major depressive disorder) (F32.9) 10/09/2023 Active confirmed Vital Signs Height 5ft 3 in in 10/09/2023 Denies any phys ical symptoms; unable to obtain vital signs due to telephone encounter Weight 165 lbs 10/09/2023 Denies any phys ical symptoms; unable to obtain vital signs due to telephone encounter BMI 29.23 kg/m2 10/09/2023 Denies any phys ical symptoms; unable to obtain vital signs due to telephone encounter Encounters Encounter Location Date Provider Diagnosis [address] [place] [address] 10/09/2023 Meredith Lea Cannabis use disorder F12.90 ; MDD (major depressive disorder) F32.9 ; Anxiety F41.9 ; Medication monitoring encounter Z51.81 and Fatigue R53.[address] [place] [address] 02/19/2024 Meredith Lea Mood disorder F39 and Cannabis abuse F12.[address] [place] [address] 10/08/2023 Meredith Lea [address] [place] [address] 10/09/2023 Meredith Lea [address] [address] 10/09/2023 Meredith Lea [address] [place] [address] 10/10/2023 Meredith Lea Assessments Encounter Date Diagnosis (ICD Code) Assessment Notes Treatment Notes Treatment Clinical Notes Section Notes 10/09/2023 MDD (major depressive disorder) (ICD-10 - F32.9) PHQ-9 20 today. No SI. Denies need for warm handoff to crisis. Encouraged counseling Labs ordered. Follow up in 2 weeks, may consider Luvox or Effexor. 10/09/2023 Cannabis use disorder (ICD-10 - F12.90) Offered MAT services Start Gabapentin for off label use. Discussed benefits, risks, and SE. 02/19/2024 Mood disorder (ICD-10 - F39) Goal is KENDRICK as pt has poor compliance with medication Start Abilify 5mg daily Continue fluoxetine 20mg daily Start Mirtazapine 7.5mg for insomnia and nightmares. Off label use for daytime anxiety. Take as prescribed. Reviewed purpose - reduce anxiety, improve sleep, decrease depression, and increase appetite; benefits - reduce anxiety, improve sleep, decrease depression, and increase appetite; and risks - including increased appetite, weight gain, increased thoughts of suicidality, and prompting manic episodes in some individuals. Referred to therapy. Antipsychotics education - reviewed side effects which may include metabolic syndrome, movement disorders (EPS/extrapyramidal symptoms & TD/Tardive dyskinesia) - potentially permanent movement abnormalities, NMS/neuroleptic malignant syndrome (high fever, very rigid muscles, and rapid heartbeat - potentially fatal), sedation, and cardiac rhythm abnormalities. Client was educated about risks and benefits of medication, alternative to medication, alternative to no medications, suicidal ideation with SSRI, education related to psychiatric illness, self-administration, compliance with medication, storage and safeguarding of medication. Will assess appropriateness of medication reduction after client shows stability in current clinical s/s. Reduction will not result in a negative outcome. 02/19/2024 Cannabis abuse (ICD-10 - F12.10) Encouraged MAT services Cannabis use - explained that cannabis is known to increase mood cycling with bipolar disorder and prompt psychosis in vulnerable individuals. 10/09/2023 Anxiety (ICD-10 - F41.9) Start Gabapentin for off label use. Discussed benefits, risks, and SE. 10/09/2023 Medication monitoring encounter (ICD-10 - Z51.81) 10/09/2023 Fatigue (ICD-10 - R53.83) 10/09/2023 Other Patient was edu cated on diagnosis and symptoms. Discussed the treatment plan, patient is agreeable and accepting of treatment plan. Patient denies further questions or concerns currently. Discussed sleep hygiene and caffeine intake. Encouraged to improve diet, get regular exercise, daily relaxation, and work on managing stress levels.Return to clinic 2 weeks.Labs ordered today. Encouraged counseling.Educated patient that if she is or planning to become , she is to let the provider know immediately.The Patient/Guardian is aware of the need to contact the office or return for an earlier appointment if any problems or concerns arise. May also contact the 24-hour crisis hotline ([facility]), refer to the closest emergency room or call 911 if new symptoms arise of existing symptoms worsen; the Patient/Guardian is aware that this would apply to symptoms such as: suicidal ideation, homicidal ideation, high risk behaviors, manic symptoms, psychotic symptoms, physical symptoms, or any other symptoms that may be dangerous to self or others.Greater than 50% of time spent on coordination and counseling where psychopharmacology as well as psychotherapeutic interventions were discussed along with review of treatments in the past.Patient/Guardian was educated about treatments including benefits and risks, alternatives, potential medication side effects, black box warning, and risks of failure if not treated. The Patient/Guardian asked appropriate questions, appeared to understand the answers, and decided to accept the treatment and continue being followed.Discussed the importance of compliance with medications due to the risk of relapse of symptoms.Discussed the risks of taking psychotropic medication when combined with substance use/abuse and/or drinking alcohol. 02/19/2024 Other Patient was edu cated on diagnosis and symptoms. Discussed the treatment plan, patient is agreeable and accepting of treatment plan. Patient denies further questions or concerns currently. Discussed sleep hygiene and caffeine intake. Encouraged to improve diet, get regular exercise, daily relaxation, and work on managing stress levels.Return to clinic 4 weeks, in person preferred.Need LIANG for medical records and for mom today.Referred for counseling.Educated patient that if she is or planning to become , she is to let the provider know immediately.The Patient/Guardian is aware of the need to contact the office or return for an earlier appointment if any problems or concerns arise. May also contact the 24-hour crisis hotline ([facility]), refer to the closest emergency room or call 911 if new symptoms arise of existing symptoms worsen; the Patient/Guardian is aware that this would apply to symptoms such as: suicidal ideation, homicidal ideation, high risk behaviors, manic symptoms, psychotic symptoms, physical symptoms, or any other symptoms that may be dangerous to self or others.Greater than 50% of time spent on coordination and counseling where psychopharmacology as well as psychotherapeutic interventions were discussed along with review of treatments in the past.Patient/Guardian was educated about treatments including benefits and risks, alternatives, potential medication side effects, black box warning, and risks of failure if not treated. The Patient/Guardian asked appropriate questions, appeared to understand the answers, and decided to accept the treatment and continue being followed.Discussed the importance of compliance with medications due to the risk of relapse of symptoms.Discussed the risks of taking psychotropic medication when combined with substance use/abuse and/or drinking alcohol. Plan Of Treatment No Information Insurance Providers Payer Name Payer Address Payer Phone Subscriber Number Group Number Insured Name Patient Relationship to Insured Coverage Start Date Coverage End Date [employer] [address] [place] [address] [id number] Lori Hernandes Child - Insured has Financial Responsibility 3 3 MEDICAID [address] [place] [address] [id number] Lori Hernandes Child - Insured has Financial Responsibility 3 3 Medical (General) History Medical History History ICD Code depression anxiety Surgical History Surgery Date(Month/Year) C Section 2020 Hospitalization History Reason Date(Month/Year) [facility] for Steve ction 02/05/2024-02/08/2024 [facility] for psych is sues 08/2023
--- OUTSIDE RECORDS SUMMARY | 2024-10-05 11:17 | XMS_ITS ---
Author Organization [facility] Address [address] [place] [address] Care Team Providers Care Motorcycle Police Name Role Phone Meredith Lea Primary Care Provider REASON FOR VISIT discharged from hospital Encounters Encounter Location Date Provider Diagnosis [address] [address] 02/13/2024 Meredith Lea Plan Of Treatment No Information Progress Notes * Thong HENRANDESyDOB:2000 (24 yo F)Acc No.[id number]:02/13/2024 UNLOCKED PROGRESS NOTE Patient: Pk NASCIMENTO Provider: Kimber Lea, MSN, BLINDSTITCH MACHINE OPERATOR-BC, PMHNP-BC :2000 A ge:23 Y S ex:Female Date:02/13/2024 Address:[address] [facility] Subjective: * Chief Complaints: * 1 . Discharged from hospital. * Medical History: Objective: * Vitals: Assessment: Plan: * Treatment: * Recommended Wellness and Pre vention Guidelines: * S tatus A lert L ast Done N ext Due A ction Taken N ONCOMPLIANT C ervical cancer screening - 0 02/13/2024 - N ONCOMPLIANT D epression followup 0 10/09/2023 0 02/13/2024 - N ONCOMPLIANT H IV screening - 0 02/13/2024 - * * Electronic signature of Meredith Lea , [id number] on 10/05/2024 at 11:17 AM CDT Sign off status: Pending * Provider: Kimber Lea, MSN, BLINDSTITCH MACHINE OPERATOR-BC, PMHNP-BC Date: 0 02/13/2024 Generated for Eben london/Jamin/Mitali on: 0 10/05/2024 11:17 AM CDT
--- OUTSIDE RECORDS SUMMARY | 2024-10-05 11:18 | XMS_ITS ---
Author Organization [facility] Address [address] [place] [address] Care Team Providers Care Level Vial Sealer Name Role Phone Meredith Lea Primary Care Provider [phone] REASON FOR VISIT last seen 10/09/23--2 week f u Encounters Encounter Location Date Provider Diagnosis [address] [address] 12/12/2023 Meredith Lea Plan Of Treatment No Information Progress Notes * Paul HERNANDESOB:2000 (24 yo F)Acc No.[id number]:12/12/2023 UNLOCKED PROGRESS NOTE Patient: Pk NASCIMENTO Provider: MXA Garner, PROTOHISTORIAN-BC, PMHNP-BC :2000 A ge:23 Y S ex:Female Date:12/12/2023 Address:[address] [facility] Subjective: * Chief Complaints: * 1 . Last seen 10/09/23--2 week f u. * Medical History: Objective: * Vitals: Assessment: Plan: * Treatment: * * Electronic signature of Meredith Lea , [id number] on 10/05/2024 at 11:17 AM CDT Sign off status: Pending * Provider: MAX Garner, PROTOHISTORIAN-BC, PMHNP-BC Date: 0 12/12/2023 Generated for Eben london/Jamin/Mitali on: 0 10/05/2024 11:17 AM CDT
--- OUTSIDE RECORDS SUMMARY | 2024-10-05 11:18 | XMS_ITS ---
Author Organization [facility] Address [address] [place] [address] Care Team Providers Care Alarm Investigator Name Role Phone Meredith Lea Primary Care Provider Allergies No Known Allergies Reason For Referral Reason pt is interested in therapy. Tested positive for Mood disorder. She has a hx of cannabis abuse, she was hospitalized for it 2 weeks ago at [facility] Diagnosis 1 Cannabis use disorde r (F12.90) Diagnosis 2 Mood disorder (F39) Referral Organization [facility] Referring Provider First Name Meredith Referring Provider Last Name Leonora Referring Provider Speciality Psychiatry Referred Provider Specialty [facility]al [facility] Clinical Notes Cristopher Thompson 2023 02:44:41 PM > Client was unable to be reached, left a voicemail., Cristopher Thompson 02/22/2024 12:50:01 PM > Client was unable to be reached, left a voicemail., Cristopher Thompson 02/26/2024 09:19:26 AM > Client was unable to be reached, letter will be sent. Referral Priority Routine REASON FOR VISIT hasnt been seen since 10/05/2023 Medications Medication SIG (Take, Route, Fr equency, Duration) Notes Start Date End Date Status Mirtazapine 7.5 MG 1 tablet at bedtime Orally Once a day for 30 days 02/19/2024 Active FLUoxetine HCl 20 MG 1 capsule Orally On ce a day for 30 days Active ARIPiprazole 5 MG 1 tablet Orally Once a day for 30 days 02/19/2024 Active Problems Problem Type SNOMED Code ICD Code Onset Dates Problem Status W/U Status Risk Notes Problem Mood disorder (72694202) Mood disorder (F39) 02/19/2024 Active confirmed Problem Cannabis abuse (59918352) Cannabis abuse (F12.10) Active confirmed Encounters Encounter Location Date Provider Diagnosis [facility] [place] [address] 02/19/2024 Meredith Lea Mood disorder F39 and Cannabis abuse F12.10 Assessments Encounter Date Diagnosis (ICD Code) Assessment Notes Treatment Notes Treatment Clinical Notes Section Notes 02/19/2024 Mood disorder (ICD-10 - F39) Goal [...] disorder and prompt psychosis in vulnerable individuals. 02/19/2024 Other Patient was edu cated on [...] use/abuse and/or drinking alcohol. Plan Of Treatment Medication Medication Name Sig Start Date Stop Date Notes Mirtazapine 7.5 MG 1 tablet at bedtime Orally Once a day for 30 days 02/19/2024 FLUoxetine HCl 20 MG 1 capsule Orally On ce a day for 30 days ARIPiprazole 5 MG 1 tablet Orally Once a day for 30 days 02/19/2024 Treatment Notes Assessment Notes Mood disorder Goal is KENDRICK as pt has poor [...] will not result in a negative outcome. Cannabis abuse Encouraged MAT services Cannabis use - explained that cannabis is known to increase mood cycling with bipolar disorder and prompt psychosis in vulnerable individuals. Other Patient was educated on diagnosis and symptoms. Discussed the treatment [...] May also contact the 24-hour crisis hotline ([facility]), refer to the closest emergency room [...] combined with substance use/abuse and/or drinking alcohol. Referrals Referral Date Details 02/19/2024 02/19/2024, pt is in terested in therapy. Tested positive for Mood disorder. She has a hx of cannabis abuse, she was hospitalized for it 2 weeks ago at [facility] Next Appt Details Follow Up: 4 Weeks, Reason: Medication management - office visit, not telehealth Progress Notes * Paul HERNANDESOB:2000 (24 yo F)Acc No.[id number]:02/19/2024 Patient: Pk NASCIMENTO Provider: Kimber Lea, MSN, FINANCE LEAD-BC, PMHNP-BC :2000 A ge:24 Y S ex:Female Date:02/19/2024 Address:[address] [facility] Subjective: * Chief Complaints: * H asnt been seen since 10/05/2023 * HPI: D epression Screening: This session was completed telephonically due to COVID-19 emergency, with client/parental/guardian consent. PHQ-9 L ittle interest or pleasure in doing things N early every day, F eeling down, depressed, or hopeless N early every day, T rouble falling or staying asleep, or sleeping too much M ore than half the days, F eeling tired or having little energy M ore than half the days, P oor appetite or overeating M ore than half the days, F eeling bad about yourself or that you are a failure, or have let yourself or your family down N ot at all, T rouble concentrating on things, such as reading the newspaper or watching television M ore than half the days, M oving or speaking so slowly that other people could have noticed; or the opposite, being so fidgety or restless that you have been moving around a lot more than usual N ot at all, T houghts that you would be better off or of hurting yourself in some way N ot at all, T otal Score 1 4, I nterpretation M oderate Depression. I ntervention D epression Screening Findings P ositive, F ollow-Up for Depression N o Referral necessary, patient involved in behavioral health treatment .. S creening: [place] Suicide Severity Rating Scale (LF) D o you want to initiate with S creener form, 1 . Wish to be : Have you wished you were or wished you could go to sleep and not wake up? N o, 2 . Suicidal Thoughts: Have you actually had any thoughts of killing yourself? N o, 6 . Suicide Behaviour: Have you ever done anything,started to do anything, or prepared to end your life? N o, I nterpretation: L ow Risk. C SSRS Interpretation and Follow Up Plan: CSSRS Interpretation and Follow Up Plan. CSSRS Interpretation and Follow Up Plan C SSRS Screen documented using SF Y es, M oderate or High risk requires selection of a follow up plan C SSRS No/Low: intervention not needed at this time. C onstitutional: Chief Complaint: Medication management. HPI: Pk is a 24 y/o female that presents by telephone for follow up. She was last seen on 10/09/2023 for an initial psychiatric evaluation. Last visit we started Gabapentin and Vistaril. She failed to follow up until today. She reports that she was hospitalized at [facility] 2 weeks ago for a 3 day period for her Cannabis Abuse. At her initial visit she reported she started smoking cannabis at age 15. She was chain smoking blunts on a daily basis for 10-15 years. She reported that she was out of control and that it was taking over her life. Today she reports that she is down to smoking 1-2 blunts a day. She is taking Fluoxetine 20mg daily. She started on it in the hospital and has been taking it for 2 weeks. She has not noticed much difference thus far. No side effects. She reports Gabapentin made her more irritable and Vistaril was ineffective. She is not sleeping or eating without weed. She has been experiencing some nightmares, but not every night. She also reports increased anxiety. I am not always able to think clearly. She has a hx of depression. She was diagnosed in August of 2022 when she was hospitalized for SI. She also tested positive for a mood disorder at her initial eval as well as anxiety disorder. She endorses paranoia but no hallucinations. No delusions. She denies any current sukhjinder or SIB/SI/HI/AVH. Mom reports that is isolated and she does not like being around people. Mom reports MGM had Paranoid Schizophrenia and Bipolar Disorder. PHQ-9 on 10/09/2023 was 20. Today's PHQ-9 is 14. Previous Diagnosis: MDD (dx August 2022), CUD Goals: Getting back into working. Getting off of weed to get a better life. Coping strategies: Showering, exercising, smoking, just having time to myself. Social Activities/Hobbies: I don't have many rights now because I am dealing with this addiction. Exercise, listening to music. Drugs/ETOH/nicotine: Smokes tobacco. Now smoking 1-2 blunts a day now. She started smoking weed at age 15, Chain smoked blunts for 10-15 years. No other drug use. No ETOH use. Therapy: She is not in therapy. Medications effective: Unsure Medication Adherence: No Side effects: Unknown medication made her hallucinate in the hospital Past medications: Past medication: sertraline, escitalopram (prescribed but never tried it), fluoxetine, Mirtazapine, Gabapentin (increased irritability), Vistaril Current medication: Prozac 20mg daily Sleep: Trouble falling asleep most nights and nightmares occasionally Appetite: Diminished appetite, weight loss, has lost weight but does not know how much. Depression: 8/10, 10 being the worst. Anxiety/Panic attacks: 9/10, 10 being the worst. Panic attacks once a week. She has CP, SOB, palpitations, nausea, panicky, can't think clearly. Anger/Irritability: Endorses. Hallucinations/Paranoia: Endorses paranoia, no hallucinations. Current Suicidal ideation: Denies. Past suicidal ideation: Denies. Homicidal ideation: Denies. Medical concerns: Denies any medical problems PCP is Dr. Montez Hospitalizations/medication changes by other providers: [facility] [place] August 2022 for SI [facility] 01/2024 for Cannabis Abuse She was 17 when she first sought counseling. FMH: Mother-HTN, Depression Father- at age 55 from heart failure; Diabetes MGM-Paranoid Schizophrenia, Bipolar Disorder MGF-HTN, Dementia PGM-passed when she was young, possible suicide. Had hx of depression PGF-unknown Paternal side-CAD, Diabetes Brother- He has a mental disability. PGM possible completed suicide (it was never ruled.) Legal Concerns: Denies Support system: Lori (mother). * ROS: P sych ROS: Constitutional R eports, f atigue. R espiratory?Denies. C ardiovascular D enies. G I D enies. M usculoskeletal D enies.?Neurological D enies. E ndocrine D enies. H ematological/Lymphatic D enies.? * PSYCH ROS2: Admits m ood swings. T houghts of self harm D enies. D enies H omicidal thoughts. I nattention A dmits. P aranoia A dmits. D ifficulty concentrating A dmits. A dmits A nxiety. D enies A uditory/visual hallucinations. D enies D elusions. A dmits D epressed mood. A dmits D ifficulty sleeping. D enies E ating disorder. L oss of appetite A dmits. A dmits S tressors. A dmits S ubstance abuse. D enies S uicidal thoughts. * Medical History: * Surgical History: C Section 2020 * Hospitalization/Major Diagno stic [facility] * Family History: F ather: . M other: alive. 7 brother(s) , 2 sister(s) - healthy. 1 son(s) - healthy. . Mother-HTN, Depression Father- at age 55 from heart failure; Diabetes MGM-Paranoid Schizophrenia, Bipolar Disorder MGF-HTN, Dementia PGM-passed when she was young, possible suicide. Had hx of depression PGF-unknown Paternal side-CAD, Diabetes Brother- He has a mental disability. PGM possible completed suicide (it was never ruled.). * Social History: P rimary Social History: L iving Arrangement L iving Arrangement: D ependent Living, L iving with: Luc ness(s) mother, I s this a supportive environment? Y es. A lcohol Use A lcohol Use Frequency: N ever. I llicit Substance Usage I llicit Substance Usage: Y es, S ubstance Used: Kimber annabis, I nterested in quitting: N o. T obacco Use T obacco Use:?Status Reviewed with Patient, T obacco Use Status Reviewed on: 0 10/09/2023. * Medications: T akingFLUoxetine HCl 20 MG Capsule 1 capsule Orally Once a day Medication List reviewed and reconciled with the patientTaking FLUoxetine HCl 20 MG Capsule 1 capsule Orally Once a day Medication List reviewed and reconciled with the patient * Allergies: N .K.D.A.no[Allergies Verified] Objective: * Vitals: I nitials: CLS, LMP: 02/06/2024, Pain scale:0. Denies any physical symptoms; unable to obtain vital signs due to telephone encounter. * Examination: G eneral Examination: PSYCH: a ffect flat, mood depressed, , speech clear, no auditory or visual hallucinations, thought content without suicidal ideation or delusions, alert, oriented x4, cognitive function intact, cooperative with exam, thought process logical, goal directed, judgement and insight fair, thought processes helplessness, thought processes hopelessnsess, thought processes worthlessness, thought content without delusions, denies any current thoughts/plans of suidicial/homicidal ideation. Mental Status Exam P rotective Factors C hildren, Coping Skills, Cultural/Temple Ideology, Denies Intent/Desire/Means. Assessment: * Assessment: 1. M ood disorder - F39 (Primary) 2 . C annabis abuse - F12.10 ? Plan: * Treatment: 2. C annabis abuse Notes: Encouraged MAT services Cannabis use - explained that cannabis is known to increase mood cycling with bipolar disorder and prompt psychosis in vulnerable individuals. 3. O thers Notes: Patient was educated on diagnosis and symptoms. Discussed the treatment [...] combined with substance use/abuse and/or drinking alcohol. Referral To:Behavioral Health Reason:pt is interested in therapy. Tested positive for Mood disorder. She has a hx of cannabis abuse, she was hospitalized for it 2 weeks ago at [facility] * Procedure Codes: * Follow Up: 4 Weeks (Reason: Medication management - office visit, not telehealth) * * Sign off status: Completed true * Provider: Kimber Lea, MSN, FINANCE LEAD-, PMHNP- Date: 0 02/19/2024 Generated for Eben london/Jamin/Kendyransmlis on: 0 10/05/2024 11:17 AM CDT History and Physical Notes * HPI (History of Present Illness) Category Sub-Category Detail Notes Category Not es Depression Screening PHQ-9 Little inte rest or pleasure in doing things: Nearly every day Feeling down, depressed, or hopeless: Ne jaime every day Trouble falling or staying a sleep, or sleeping too much: More than half the days Feeling tired or having little energy: M ore than half the days Poor appetite or overeating: More than h prison the days Feeling bad about yourself o r that you are a failure, or have let yourself or your family down: Not at all Trouble concentrating on thi ngs, such as reading the newspaper or watching television: More than half the days Moving or speaking so slowly that other people could have noticed; or the opposite, being so fidgety or restless that you have been moving around a lot more than usual: Not at all Thoughts that you would be b gutierrez off or of hurting yourself in some way: Not at all Total Score: 14 Interpretation: Moderate Depression Intervention Depression Screening Findings: P ositive Follow-Up for Depression: No Referral necessary, patient involved in behavioral health treatment . Screening [place] Suicide Sev erity Rating Scale (LF) Do you want to initiate with: Screener form 1. Wish to be : Have you wished you were or wished you could go to sleep and not wake up?: No 2. Suicidal Thoughts: Have you actually had any thoughts of killing yourself?: No 6. Suicide Behavior Question: Have you ever done anything,started to do anything, or prepared to end your life?: No Interpretation:: Low Risk Do Not Use CSSRS Interpretation and Follow Up Plan CSSRS Interpretation and Follow Up Plan CSSRS Screen documented using SF: Yes Moderate or High risk requir es selection of a follow up plan: CSSRS No/Low: intervention not needed at this time Examination Category Sub-Category Detail Notes Category Not es General Examination PSYCH: affect flat, mood depressed, , speech clear, no auditory or visual hallucinations, thought content without suicidal ideation or delusions, alert, oriented x4, cognitive function intact, cooperative with exam, thought process logical, goal directed, judgement and insight fair, thought processes helplessness, thought processes hopelessnsess, thought processes worthlessness, thought content without delusions, denies any current thoughts/plans of suidicial/homicidal ideation Mental Status Exam Protective Factors: Children, Coping Skills, Cultural/Temple Ideology, Denies Intent/Desire/Means Consultation Request Notes Referral Date Referring Provider Referred Provider Not es 02/19/2024 Meredith Lea pt is interest ed in therapy. Tested positive for Mood disorder. She has a hx of cannabis abuse, she was hospitalized for it 2 weeks ago at [facility]
--- OUTSIDE RECORDS SUMMARY | 2024-10-05 11:18 | XMS_ITS | Data Portability ---
Author Organization [facility], [employer] Address [address] [address] Care Team Providers Care Flute Polisher Name Role Phone MARCOSWILDNIKKI Primary Care Provider Assessment Encounter Date Assessment Date Assessment LastModified by Organization Details LastModified Time 05/13/2018 05/13/2018 New patient presented for admission to the practice. Studies ordered as below. Discussed plan with patient, who expressed understanding . Follow up as noted below. [email or web address] Not available 05/13/2018 15:45:56 12/12/2019 12/12/2019 Patient presented for follow up. Studies ordered as below. Discussed plan with patient/carmelo orellana, who expressed understanding . Follow up as noted below. [email or web address] Not available 12/12/2019 11:20:42 Plan of Treatment Reminders Order Date Submit Date Provider Last Modified By Organization Details Last Modified Time Details Appointments None recorded. Lab TSH, serum or plasma 2022 023 [facility], [address], [address], 3 05:36:08 CMP, serum or plasma 2022 023 [facility], [address], [place], [address], 3 05:35:24 CBC w/ auto diff 2022 023 [facility], [address], [place], [address], 3 05:35:39 hepatitis C Ab, serum 2019 020 [email or web address] 1 Not available 0 08:39:46 RPR (rapid plasma reagin), serum 2019 020 [email or web address] 1 Not available 0 08:39:47 HIV 1+2 AB + HIV 1 p24 Ag, qualitativ e immunoassa y, serum 2019 020 [email or web address] 1 Not available 0 08:39:47 CT + NG + TV, DNA, urine/swab 2019 020 [email or web address] 1 Not available 0 08:39:47 hepatitis panel (A+B+C), acute, serum 2019 020 [email or web address] 1 Not available 0 08:39:47 test, urine 2019 020 [email or web address] 1 Not available 0 08:39:47 lipid panel, serum 2019 020 jcrundwell 1 Not available 0 08:39:47 TSH, serum or plasma 2019 020 jcrundwell 1 Not available 0 08:39:46 CBC w/ auto diff 2019 020 jcrundwell 1 Not available 0 08:39:46 CMP, serum or plasma 2019 020 jcrundwell 1 Not available 0 08:39:47 TSH, serum or plasma 2017 018 [email or web address] Not available 8 08:49:54 CBC w/ auto diff 2017 018 [email or web address] Not available 8 08:49:54 CMP, serum or plasma 2017 018 [email or web address] Not available 8 08:49:54 lipid panel, serum 11/12/ 2018 11/12/2 018 Not available 8 08:49:54 glucose tolerance test, 2-hour 2017 018 [email or web address] Not available 8 08:49:[address] referral 2022 023 KALIE Woodward MD, [address], [place], [address], 3 05:23:[address] referral 2022 023 KALIE Richardson MD, [address], [address], [place], [address], 4 04:01:27 optometris t referral 2019 020 [email or web address] 1 [facility], [address] [place], [address], 0 08:39:[address] referral 2019 020 [email or web address] 1 Diana Woodward MD, [address], [place], [address], 0 08:39:30 counseling referral 2019 020 [email or web address] 1 [facility], [facility] [place], [address], 0 08:39:29 optometris t referral 2017 018 [email or web address] 1 Not available 8 12:41:[address] referral 2017 018 [email or web address] 1 Not available 8 12:41:45 Procedures None recorded. Surgeries None recorded. Imaging None recorded. Medication Orders fluticason e propionate 50 mcg/actuat ion nasal spray,susp ension 2022 023 [facility] #[id number], [address] [place], [place], [id number], 3 16:44:32 Mucinex DM 30 mg-600 mg tablet,ext ended release 12 hr 2022 024 [facility] #61609, [address] [place], [place], [id number], 4 19:43:43 Zithromax Z-Nader 250 mg tablet 2022 023 [facility] #43359, [address] [place], [id number], 4 19:42:53 hydroxyzin e HCl 50 mg tablet 2022 023 [facility] #69588, [address] [place], [place], [id number], 3 16:44:34 escitalopr am 10 mg tablet 2022 023 [facility] #78309, [address] [place], [place], [id number], 3 16:44:24 sertraline 50 [address] tablet [address] [facility] #27285, [address] [place], [place], [id number], 0 11:47:22 buspirone [address] [facility] #13091, [address] [place], [place], [id number], 0 11:47:20 Tubersol 5 tub. unit/0.1 mL intraderma l injection solution 2017 018 [facility] #85250, [address] [place], [id number], 16:33:40 Patient TargetsNo targets recorded. Patient Instructions Encounter Date Encounter Id Patient Instructions Last Modified By Organization Details Last Modified Time 05/13/2018 [id number] when your child IS overweight: care instructions [email or web address] Not available 05/13/2018 15:48:45 12/12/2019 [id number] body mass index: care instructions [email or web address] Not available 12/12/2019 11:47:12 learning about healthy weight [email or web address] Not available 12/12/2019 11:47:11 05/30/2023 [id number] body mass index: care instructions [email or web address] Not available 05/30/2023 16:44:15 learning about healthy weight mshenouda Not available 05/30/2023 16:44:15 Reason for Referral Mat Repairer Referral for Mat lt health examination Referring Physician: Kassandra Corona [facility], Encounter Date: 05/13/2018 Manufacturing Production Technician Referral for Sc reening for malignant neoplasm of cervix Referring Physician: Kassandra Corona [facility], Encounter Date: 05/13/2018 Counseling Referral for Mixe d anxiety and depressive disorder Referring Physician: Kassandra Corona [facility], Encounter Date: 12/12/2019 Manufacturing Production Technician Referral for Sc reening for malignant neoplasm of cervix Referring Physician: Kassandra Corona [facility], Encounter Date: 12/12/2019 Mat Repairer Referral for Scr eening procedure Referring Physician: Kassandra Corona [facility], Encounter Date: 12/12/2019 Psychiatrist Referral for Mi xed anxiety and depressive disorder Referring Physician: Kassandra Corona [facility], Encounter Date: 05/30/2023 Manufacturing Production Technician Referral for Sc reening for malignant neoplasm of cervix Referring Physician: Kassandra Corona [facility], Encounter Date: 05/30/2023 Results Created Date Observation Date Name Description Value Unit Range Abnormal Flag Note LastModifiedBy Organization Detail LastModifiedTime 07/30/19 21 07/29/2020 US, pelvi s, compl ete No observ ation record ed. [email or web address], [place], [address], 08/02/2020 12:02:06 08/05/19 21 07/29/2020 US, abdom en + pelvi s No observ ation record ed. [email or web address] Not Available 2020 19:48:58 Result Notes None recorded. Problems Name Problem SNOMED Code Status Onset Date Resolution Date Notes Provider Name and Address Organization Details Recorded Time Body mass index 30+ - obesity 896366164 Active 020 Mattjailyn Layne [facility] 0 11:21:01 Mixed anxiety and depressive disorder 325002817 Active 023 Kassandra Corona MD [address], [place], [address], [place] [facility] 3 16:34:57 Marijuana user 146293941 Active 023 Kassandra Corona MD [address], [place], [address], [place] [facility] 3 16:43:32 Problem Notes None recorded. Procedures Surgical History None recorded. Imaging Results Imaging Date Name Status LastModified by Organiz ation Details LastModified Time 07/29/2020 US, pelvis, complete completed [address], [place], [address], 08/02/2020 12:02:06 07/29/2020 US, abdomen + pelvis completed Information not available 08/05/2020 19:48:58 Procedure Notes None recorded. Medical Equipment None Reported. Allergies No known drug allergies Medications Name Sig Start Date Stop Date Status Note LastModified by Organization Details LastModified Time azithromyci n 250 mg tablet TAKE 2 TABLETS (500 MG) BY ORAL ROUTE ONCE DAILY FOR 1 DAY THEN 1 TABLET (250 MG) BY ORAL ROUTE ONCE DAILY FOR 4 DAYS 09/25 completed Not Available Not Available Not Available benzonatate 200 mg capsule active Not Available Not Available Not Available Tubersol 5 tub. unit/0.1 mL intradermal injection solution as directed 05/30 completed Not Available Not Available Not Available hydroxyzine pamoate 50 mg capsule active Not Available Not Available N ot Available hydroxyzine HCl 50 mg tablet Take 1 tablet every day by oral route at bedtime. active Not Available Not Available No t Available buspirone 10 mg tablet Take 1 tablet 3 times a day by oral route as needed. active Not Available Not Available No t Available gabapentin 300 mg capsule active Not Available Not Available Not Available fluticasone propionate 50 mcg/actuati on nasal spray,suspe nsion [place] 1 spray every day by intranasa l route. 2022 active Not Available Not Available Not Avai lable sertraline 50 mg tablet Take 1 tablet every day by oral route at bedtime. active Not Available Not Available No t Available Tylenol Extra Strength 500 mg tablet Take 1 tablet every 8 hours by oral route around the clock for 10 days. 2019 active Not Available Not Available Not Avai lable escitalopra m 10 mg tablet TAKE 1 TABLET BY MOUTH EVERY DAY IN THE EVENING 2023 active Not Available Not Available Not Avai lable mirtazapine 7.5 mg tablet TAKE 1 TABLET BY MOUTH AT BEDTIME NEEDED FOR INSOMNIA active Not Available Not Available No t Available Mucinex DM 30 mg-600 mg tablet,exte nded release 12 hr Take 1 tablet every 12 hours by oral route. 09/25 completed Not Available Not Available Not Available Vitals Date Recorded Body weight Systolic blood pressure Diastolic blood pressure Provider Name and Address Organization Details Last Updated DateTime 05/30/2023 75755.63 g 130 mm[Hg] 70 mm[Hg] Kassandra Corona MD [address], [place], [address], [facility] 05/30/2023 16:38:10 Date Recorded Heart rate Respiratory rate Body temperature Body height Body mass index (BMI) Body weight Systolic blood pressure Diastolic blood pressure Provider Name and Address Organization Details Last Updated DateTime 8 82 /min 18 /min 97 [degF] 160.02 cm 32.9 kg/m2 29874.1 8 g 109 mm[Hg] 71 mm[Hg] Amarilis Holland [facility] 8 14:43:03 Date Recorded Body height Provider Name an d Address Organization Details Last Updated DateTime 12/12/2019 160.02 cm Kassandra Corona MD [address], [place], [address], [facility] 12/12/2019 11:38:14 Social History Question Answer Notes LastModified by Organizat ion Details LastModified Time Tobacco Smoking Status Never Smoker Kassandra Corona MD [address], [place], [address], [facility] 05/13/2018 15:43:10 What Is Your Level Of Alcohol Consumption? None Information not available 05/13/2018 Are You Currently Employed? Yes Information not available 05/13/2018 Which Illicit Or Recreational Drugs Have You Used? No Information not available 05/13/2018 Live Alone Or With Others? With Others Information not available 05/13/2018 Marital Status Single Informatio n not available 05/13/2018 What Was The Date Of Your Most Recent Tobacco Screening? 05/13/2018 Information not available 01/22/2019 Sex: Unknown Functional Status Question Answer Note LastModified by Organization D etails LastModified Time Are you able to care for yourself? Yes Information n ot available 05/13/2018 Mental Status None recorded. Family History Relationship Description Onset Age of this Age Resolved Age Notes LastModified by Organization Details LastModified Time Father Heart failure 53 [email or web address] Not available 2017 15:37:13 Father Diabetes mellitus mshenouda Not available 2017 15:37:22 Mother Benign hypertension [email or web address] Not available 06/2018 15:37:41 Medical History No medical history recorded. Gynecological HistoryNo gynecological history recorded. Obstetrics History GPAL:G 0 P 0 0 0 0 Past Encounters Encounter ID Performer Location Encounter Start Date Encounter Closed Date Diagnosis/Indication Diagnosis SNOMED-CT Code Diagnosis ICD10 Code Diagnosis Note [id number] Kassandra Corona MD [facility], [facility] [address] [place] [address] 05/13/2018 14:20:52 05/13/2018 15:53:07 Adult health examination 559233336 Z00.00 Overweight 524918135 E66 .3 Family his tory of diabetes mellitus 570782190 Z83.3 Screening for malignant neoplasm of cervix 301326388 Z12.4 Active or passive immunization 508660017 Z23 pt will bring shot records from her peds [id number] Kassandra [facility] MD [facility], [facility] [address] [place] [address] 12/12/2019 11:18:26 12/12/2019 11:49:47 Mixed anxiety and depressive disorder 230817849 F41.8 No SI , No HIRTC 2 weeks if any SE Body mass index 30+ - obesity 286458237 Z68.33 education Screening for malignant neoplasm of cervix 936336786 Z12.4 Screening procedure 2012 5006 Z13.9 Viral screening 49329228 4 Z11.59 Active or passive immunization 182946765 Z23 pt will bring shot records from her peds High risk sexual behavior 368531847 Z72.51 [id number] Kassandra Corona MD [employer], [facility] [address] [place] [address] 05/30/2023 15:24:27 05/30/2023 16:52:06 Mixed anxiety and depressive disorder 274781439 F41.8 No SI , No HIRTC 2 weeks if any SE Body mass index 30+ - obesity 688878593 Z68.33 education Congestion of nasal sinus 70148461 R09.81 Screening for malignant neoplasm of cervix 888557882 Z12.4 Active or passive immunization 862227303 Z23 pt will bring shot records from her peds Marijuana user 600068546 F12.90 education Health Concerns Section Related Observation LastModified by Organization Detai ls LastModified Time None Recorded Concern Status LastModified by Organization Details LastModified Time None Recorded Advance Directives Directive None Recorded Payers Encounter Date Sequence Insurance Name Policy Number Policy El Covered Member ID El Member ID Guarantor Name 05/13/2018 1 [place] [id number] Lori Hernandes [id number] Pk Hernandes 05/30/2023 1 [facility] [id number] Pk Hernandes [id number] Pk Hernandes Notes Date Note Type Note Provider Name and Address Organization Details Recorded Time 05/13/2018 text/html Hypertension F/UReported bypatient.Medications: taking medications as directed; no side effects from medication Lifestyle:regular exercise; limiting/avoiding salt; compliant with low salt diet Associated Symptoms:no dizziness; no lightheadedness; no chest pain; no shortness of breath; no palpitations; no edema; no calf pain with exertion; no headacheMedicare Annual Wellness VisitReported bypatient.Diet and Nutrition:healthy diet Fracture Risk:no history of fractures; no recent explained fracture; no sudden unexplained fractures; no previous musculoskeletal injuries Physical Activity:recent increase in physical activity; good physical condition; discussed exercise habits Depression Risk:never feels sad, empty, or tearful; no loss of interest in activities; no significant changes in weight; no sleep disturbances or insomnia; no agitation; no loss of energy; no feelings of worthlessness or guilt; no thoughts of suicide; no history of depression; no history of mood disorders Orientation:no disorientation to time; no disorientation to date; no disorientation to place Concentration and Memory:no decreased concentrating ability; no memory lapses or loss; does not forget words Speech/Motor difficulties:no speech difficulties; no difficulty expressing formulated concepts; no difficulty with fine manipulative tasks; no difficulty writing/copying; no slowed reaction time; does not knock things over when trying to pick them up Hearing:no loss of hearing Vision:no vision problems Activities of Daily Living:able to bathe with limited or no assistance; able to contol urination and bowels; able to dress with limited or no assistance; able to feed self with limited or no assistance; able to get out of chair or bed with limited or no assistance; able to groom with limited or no assistance; able to toilet with limited or no assistance Instrumental Activities of Daily Living:able to do house work with limited or no assistance; able to grocery shop with limited or no assistance; able to manage medications with limited or no assistance; able to manage money with limited or no assistance; able to prepare meals with limited or no assistance; able to use the phone with limited or no assistance Falls Risk Assessment:no frequent falls while walking; no fall in the past year; no dizziness/vertigo Home Safety:no vision or hearing loss while driving Mounir Marcos, MD [address], [place], [address], [facility] 05/13/2018 15:51:01 12/12/2019 text/html Hypertension F/UReported bypatient.Medications: taking medications as directed; no side effects from medication Lifestyle:regular exercise; limiting/avoiding salt; compliant with low salt diet Associated Symptoms:no dizziness; no lightheadedness; no chest pain; no shortness of breath; no palpitations; no edema; no calf pain with exertion; no headache I have explained the option of participating in a telephone or video visit during the [facility] emergency to the patient. After being given an opportunity to ask questions about and discuss this type of visit, the patient verbally consented to proceeding with the telephone/video visit. The patient understands that this service replaces an office visit and they may be billed and/or responsible for any applicable co-payments.anxiety , weeks , n SI, No HIwants STD Kassandra Corona MD [address], [place], [address], [facility] 12/12/2019 11:47:32 05/30/2023 text/html Hypertension F/UReported bypatient.Medications: taking medications as directed; no side effects from medication Lifestyle:regular exercise; limiting/avoiding salt; compliant with low salt diet Associated Symptoms:no dizziness; no lightheadedness; no chest pain; no shortness of breath; no palpitations; no edema; no calf pain with exertion; no headache sinus D/C , coughdepression , No SI , No HI Kassandra Corona MD [address], [place], [address], [facility] 05/30/2023 16:44:27 OBGyn Episode No OBEpisode recorded.
--- OUTSIDE RECORDS SUMMARY | 2024-10-05 11:18 | XMS_ITS | Clinical Summary ---
Author Organization [facility] [employer] Address [address] [place] [address] Care Team Providers Care Veterinary Surgeon Name Role Phone Unavailable Primary Care Provider Unavailabl e Source Comments [facility] [employer],non-owned Affiliates and Associated Physician Practices is amultiple site organization consisting of ambulatory clinics and hospital sitesin [place], [place], [place] and [place]. This disclosure is being madepursuant to the Care Everywhere program and may not contain all information available regarding this patient. Last updated 18.[employer] Allergies No known active allergies Medications * Be aware that medications may not be up to date on this document. Alwaysverify current medications with the patient. Medication Sig Dispensed Refills Start Date End Date Status clonazePAM (KLONOPIN PO) Active VENLAFAXINE HCL PO Active cetirizine (ZYRTEC) 10 MG chew tablet Take 1 tablet by mouth once daily 30 tablet 04/17/2019 Active Dextromethorphan-guai FENesin (MUCINEX DM) 30-600 MG Take 1 tablet by mouth every 6 hours as needed 30 tablet 04/17/2019 Active Social History Tobacco Use Types Packs/Day Years Used Date Smoking Tobacco: Never Smokeless Tobacco: Never Sex and Gender Information Value Date Recorded Sex Assigned at Not on file Gender Identity Not on file Sexual Orientation Not on file Last Filed Vital Signs Vital Sign Reading Time Taken Comments Blood Pressure 112/70 04/17/2019 1:01 PM CDT Pulse 100 04/17/2019 1:01 PM CDT Temperature 37.2 C (98.9 F) 04/17/2019 1:01 PM CDT Respiratory Rate 16 04/17/2019 1:01 PM CDT Oxygen Saturation - - Inhaled Oxygen Concentration - - Weight 77.1 kg (170 lb) 04/17/2019 1:01 PM CDT Height 157.5 cm (5' 2 ) 04/17/2019 1:01 PM CDT Body Mass Index 31.09 04/17/2019 1:01 PM CDT Plan of Treatment Health Maintenance Due Date Last Done Comments PAP SMEAR 2000 HIV SCREENING 02/14/2015 HPV VACCINE (1 - 3-dose series) 02/14/2015 CHLAMYDIA/GONORRHEA SCREENING 2016 HEPATITIS C SCREENING 02/10/2018 DTAP/TDAP/TD VACCINES (1 - Tdap) 02/14/2019 HEPATITIS B VACCINE (1 of 3 - 19+ 3-dose series) 02/14/2019 COVID-19 VACCINE (1 - 2023-2 5 season) 2024 DEPRESSION SCREENING 07/02/2024 INFLUENZA VACCINE (Season Ended) 2025 ZOSTER VACCINE (1 of 2) 02/14/2050 HIB VACCINE Aged Out No longer eligi ble based on patient's age to complete this topic MENINGOCOCCAL (Group B) VACC INE SHARED DECISION-MAKING Aged Out No longer eligibl e based on patient's age to complete this topic MENINGOCOCCAL GROUPS A/C/Y/W VACCINE Aged Out No longer eligible b ased on patient's age to complete this topic PNEUMOCOCCAL VACCINE Aged Out No long er eligible based on patient's age to complete this topic [address] [place] [address] LORI ROMAN Personal/Family Other [address] [place], [place] [address] [place] [address] LORI ROMAN Personal/Family Other [address] [place], [place] [address] [place] [address]
[2024-10-05 11:52] VITALS: BP 121/80; PULSE 106; RESP 20; TEMP 36.6; O2SAT 100
--- NOTE | 2024-10-05 12:06 | PC.NURSE ---
Pt. states I need you to take this IV out it's hurting me. Pt. educated that she will likely need an IV d/t her chief complaint. Pt. states she is ok with being stuck again, and insists that her IV needs to come out. IV removed.
[2024-10-05 12:39] VITALS: PULSE 77; RESP 13; O2SAT 98
[2024-10-05 12:40] VITALS: BP 118/77; PULSE 80; RESP 14; O2SAT 98
--- NOTE | 2024-10-05 12:41 | PC.NURSE ---
went in patients room to attempt to collect blood sample. patient states no thank you. I just had an iv put in and it still hurts, so I don't want to be poked again JA Woods and EDP Fernando aware.
[2024-10-05 12:45] VITALS: PULSE 80; RESP 14
[2024-10-05 12:46] VITALS: BP 117/77; PULSE 84; RESP 17
--- NOTE | 2024-10-05 13:02 | PC.NURSE ---
pt requesting to leave, IV was removed. encouraged to seek care and follow up with pcp after visit
--- NOTE | 2024-10-05 13:08 | ED_ITS ---
HPI - Chest Pain General Chief Complaint: Chest Pain Stated Complaint: cp and sob Time Seen by Provider: 10/05/24 13:03 History of Present Illness HPI narrative: Patient is a 24-year-old female who presents ER with chest pain shortness of breath. Reports it has been a problem for a year and she thinks it is related to smoking too much. She was in custody today and she thinks she had a panic attack which made it worse. No discomfort at this time. No fevers or chills or sweats. No abdominal discomfort. No exertional component. Related Data Home Medications ?Medication ?Instructions ?Recorded ?Confirmed ?Last Taken ?Type Vitamin 1 tablet BYMOUTH DAILY 12/09/20 12/09/20 Unknown History Allergies Allergy/AdvReac Type Severity Reaction Status Date / Time No Known Allergies Allergy Verified 08/12/22 17:26 Review of Systems Review of Systems: All systems reviewed & are unremarkable except as noted in HPI and below Constitutional: Constitutional: Reports no additional constitutional complaints Cardiovascular: Cardiovascular: Reports no additional cardiovascular complaints Respiratory: Respiratory: Reports no additional respiratory complaints Gastrointestinal: Gastrointestinal: Reports no additional gastrointestinal complaints PMFSH Past Medical History Medical History (Updated 10/05/24 @ 13:11 by Chapincito King MD) Healthy female adult Surgical History Surgical History (Updated 10/05/24 @ 13:11 by Chapincito King MD) No pertinent past surgical history Social History Social History (Updated 10/05/24 @ 13:12 by Chapincito King MD) Gender identity (if verbalized by the patient): Female Spiritual care concerns: No Exam Narrative: GENERAL: Well-appearing, well-nourished, and in no acute distress. HEAD: Normocephalic, atraumatic. ENT: Mucous membranes moist. NECK: Supple. CHEST: Clear to auscultation. No respiratory distress. HEART: Regular rate and rhythm. Normal peripheral pulses. EXTREMITIES: Normal range of motion. No edema. SKIN: Warm, dry, no rash. NEURO: Alert and oriented x3. PSYCH: Normal mood and affect. Course Course Emergency Course: Resting comfortably. X-ray an EKG normal. Appropriate for discharge. Will give Vistaril for anxiety. Vital Signs Vital signs: Vital Signs Temperature 97.8 F 10/05/24 11:52 Pulse Rate 106 H 10/05/24 11:52 Respiratory Rate 20 10/05/24 11:52 Blood Pressure 121/80 10/05/24 11:52 Pulse Oximetry 100 10/05/24 11:52 Oxygen Delivery Room Air 10/05/24 11:52 Temperature 97.8 F 10/05/24 11:52 Pulse Rate 84 10/05/24 12:46 Respiratory Rate 17 10/05/24 12:46 Blood Pressure 117/77 10/05/24 12:46 Pulse Oximetry 98 10/05/24 12:40 Oxygen Delivery Room Air 10/05/24 11:52 MDM - Chest Pain ECG Data EKG #1: ECG completion date: 10/05/24 ECG completion time: 11:22 EKG Interpretation: normal rate (84), sinus rhythm, no ectopy, no ST changes, normal QRS and NL axis Discharge Plan Discharge Clinical Impression: Anxiety attack Patient Disposition: Home, Self-Care Condition: Stable Instructions: Anxiety (ED) Additional Instructions: Please return to the emergency department if you develop severe and persistent chest pain, difficulty breathing, dizziness, leg swelling or if you are coughing up blood as these can be signs of a medical emergency. Please call your doctor for a follow up appointment to determine the need for further testing. Patient Language: Japanese Prescriptions: New hydroxyzine pamoate [Vistaril] 25 mg capsule 25 mg PO TID Qty: 20 0RF No Action Vitamin 1 tablet BYMOUTH DAILY acetaminophen [Mapap (acetaminophen)] 325 mg Tablet 650 mg PO Q6H PRN (Reason: Mild Pain (1-3)) Qty: 30 0RF ibuprofen 600 mg Tablet 600 mg PO Q6H PRN (Reason: Cramping) Qty: 30 0RF nifedipine [Procardia XL] 30 mg Tablet Extended Release 24hr 30 mg PO QAM Qty: 30 0RF sertraline [Zoloft] 50 mg Tablet 50 mg PO HS Qty: 30 3RF hydrocodone-acetaminophen 5-325 mg tablet 1 tablet PO Q6H PRN (Reason: pain) Qty: 28 0RF Follow-up/Referrals: Chloe,MD Kassandra [Primary Care Provider] - 1 Week
--- OUTSIDE RECORDS SUMMARY | 2024-10-05 13:15 | XMS_ITS | Clinical Summary ---
Author Organization [facility] Marley Spoon Address [address] [place] [address] Care Team Providers Care Roller Helper Name Role Phone Unavailable Primary Care Provider Unavailabl e Source Comments [facility],non-owned Affiliates and Associated Physician Practices is amultiple site organization consisting of ambulatory clinics and hospital sitesin [place], [place], [place] and [place]. This disclosure is being madepursuant to the Care Everywhere program and may not contain all information available regarding this patient. Last updated [employer] [facility] Allergies No known active allergies Medications * [...] patient's age to complete this topic #3 [place] [address] LORI ROMAN Personal/Family Other [address] [place] [address] [place] [address] LORI ROMAN Personal/Family Other [address] [place] [place] [address] [place] [address]
== END 2024-10-05 13:54 | disposition home or self-care (01) ==
LOC: ANHED 13:13
PROVIDERS: Emergency Provider Emergency Medicine; PCP Internal Medicine
DX: F41.9 Anxiety disorder, unspecified (principal); R94.31 Abnormal electrocardiogram [ECG] [EKG]
CPT/HCPCS: 71046; 93005; 99284